=== PATIENT | male | born 1975 | race American Indian/Alaskan Native ===

== ENCOUNTER 2016-09-29 14:51 | Emergency (ER) | payer MEDICARE ==
--- NOTE | 2016-09-29 16:44 | Emergency Department Report ---
ED Seizure HPI - General Chief Complaint: Seizure Stated Complaint: SEIZURE/ALCHOL WITHDRAWL Time Seen by Provider: 09/29/16 16:12 Source: patient Mode of arrival: Stretcher Limitations: No Limitations - History of Present Illness Initial Comments: 41-year-old male history of hypertension presenting to the emergency department complaining of seizures. Patient states he was [facility] where witnesses noticed that he had LOC and generalized shaking, episode occurred less than 1 minute. Patient state he did feel lightheaded prior to episode. Patient only complaining of mild headache in the left temporal area. Patient states his last alcohol intake was 2 weeks prior. Patient states he does have history of withdrawal seizures. Currently patient denies: Fever/chills, neck pain, chest pain, nausea, vomiting, diarrhea. MD Complaint: seizure -: Sudden Description of Episode: loss of consciousness -: second(s) Witnessed:: Yes Trauma: Yes (hit his head) Seizure History: history of withdrawal se Place: other Associated Symptoms: denies other symptoms. denies: chest pain, confusion, loss of appetite, shortness of breath, syncope Treatments Prior to Arrival: none - Related Data Previous Rx's Medication Instructions Recorded Last Taken Type Hydroxyzine HCl 50 mg PO Q12H PRN #12 tablet 12/15/14 Unknown Rx Acetaminophen/Codeine [Tylenol 1 tab PO Q8H PRN #12 tablet 12/22/14 Unknown Rx /Codeine # 3 tab] Ibuprofen [Motrin 800 MG tab] 800 mg PO Q8HR PRN #30 tablet 09/29/16 Unknown Rx levETIRAcetam [Keppra TAB] 500 mg PO BID #40 tablet 09/29/16 Unknown Rx Allergies Allergy/AdvReac Type Severity Reaction Status Date / Time No Known Allergies Allergy Verified 12/22/14 10:09 ED Review of Systems ROS: Stated complaint: SEIZURE/ALCHOL WITHDRAWL Other details as noted in HPI Comment: All other systems reviewed and negative Constitutional: denies: chills, fever Eyes: denies: eye pain, eye discharge, vision change ENT: denies: ear pain, throat pain Respiratory: denies: cough, shortness of breath, wheezing Cardiovascular: denies: chest pain, palpitations Endocrine: no symptoms reported Gastrointestinal: denies: abdominal pain, nausea, diarrhea Genitourinary: denies: urgency, dysuria Musculoskeletal: denies: back pain, joint swelling, arthralgia Skin: denies: rash, lesions Neurological: as per HPI, headache, other (seizure). denies: numbness, paresthesias, confusion Psychiatric: denies: anxiety, depression Hematological/Lymphatic: denies: easy bleeding, easy bruising ED Past Medical Hx - Past Medical History Previous Medical History?: Yes Hx Hypertension: Yes Hx Psychiatric Treatment: Yes (PANIC ATTACKS/DEPRESSION/ ANXIETY/SCHIZOPHRENIA/ bipolar) - Surgical History Past Surgical History?: Yes Additional Surgical History: TONSILLECTOMY - Social History Smoking Status: Current Every Day Smoker Substance Use Type: Alcohol - Medications Home Medications: Home Medications Medication Instructions Recorded Confirmed Last Taken Type Hydroxyzine HCl 50 mg PO Q12H PRN #12 tablet 12/15/14 Unknown Rx Acetaminophen/Codeine [Tylenol 1 tab PO Q8H PRN #12 tablet 12/22/14 Unknown Rx /Codeine # 3 tab] Ibuprofen [Motrin 800 MG tab] 800 mg PO Q8HR PRN #30 tablet 09/29/16 Unknown Rx levETIRAcetam [Keppra TAB] 500 mg PO BID #40 tablet 09/29/16 Unknown Rx ED Physical Exam - General Limitations: No Limitations General appearance: alert, in no apparent distress - Head Head exam: Present: atraumatic, normocephalic - Eye Eye exam: Present: normal appearance - ENT ENT exam: Present: mucous membranes moist - Neck Neck exam: Present: normal inspection - Respiratory Respiratory exam: Present: normal lung sounds bilaterally. Absent: respiratory distress - Cardiovascular Cardiovascular Exam: Present: regular rate, normal rhythm. Absent: systolic murmur, diastolic murmur, rubs, gallop - GI/Abdominal GI/Abdominal exam: Present: soft, normal bowel sounds - Rectal Rectal exam: Present: deferred - Extremities Exam Extremities exam: Present: normal inspection - Back Exam Back exam: Present: normal inspection - Neurological Exam Neurological exam: Present: alert, oriented X3, normal gait (CIWA score: 0 ), reflexes normal. Absent: motor sensory deficit - Psychiatric Psychiatric exam: Present: normal affect, normal mood - Skin Skin exam: Present: warm, dry, intact, normal color. Absent: rash ED Course Vital Signs 09/29/16 09/29/16 09/29/16 15:29 17:21 17:22 Temperature 98.3 F Pulse Rate 88 86 86 Respiratory 18 Rate Blood Pressure 129/94 129/94 Blood Pressure 143/100 [Left] O2 Sat by Pulse 98 Oximetry 09/29/16 18:17 Temperature Pulse Rate Respiratory 18 Rate Blood Pressure Blood Pressure [Left] O2 Sat by Pulse 98 Oximetry - Reevaluation(s) Reevaluation #1: 09/29/16 18:28 Patient resting comfortably no complaints. ED Medical Decision Making - Lab Data Result diagrams: 09/29/16 17:03 09/29/16 17:03 - Radiology Data Radiology results: report reviewed, image reviewed Negative for acute findings. - Medical Decision Making 41-year-old male past medical history of hypertension presenting to emergency room secondary to seizure. Patient workup negative for acute findings. I have low suspicion that this is secondary to alcohol withdrawal as last drink was 2 weeks ago. He has no signs of DTs such as tachycardia, change in mental status , hypertension. CIWA score is zero. This may be secondary to new onset seizure , I will dc home with Keppra and neurology follow up. Pt agrees to plan, he has no complaints and is stable discharge home. Request understanding of return precautions. Critical care attestation.: If time is entered above; I have spent that time in minutes in the direct care of this critically ill patient, excluding procedure time. ED Disposition Clinical Impression: Seizure Disposition: DC-01 TO HOME OR SELFCARE Is pt being admited?: No Does the pt Need Aspirin: No Condition: Stable Instructions: Non-epileptic Seizures (ED) Prescriptions: Ibuprofen [Motrin 800 MG tab] 800 mg PO Q8HR PRN #30 tablet PRN Reason: Pain , Severe (7-10) levETIRAcetam [Keppra TAB] 500 mg PO BID #40 tablet Forms: Work/School Release Form(ED) Time of Disposition: 18:33
[2016-09-29] MEDS ORDERED: ATIVAN IV ONE (16:58)
[2016-09-29] MEDS ORDERED: CATAPRES PO ONE (16:59)
[2016-09-29] MEDS ORDERED: APRESOLINE IV ONE (16:59)
[2016-09-29 17:01] LABS: Urine Drugs of Abuse Note Disclamer
[2016-09-29 17:10] LABS: Bilirubin,Urine NEG (Negative); Blood,Urine NEG (Negative); Ketones,Urine NEG (Negative); Leukocyte Esterase,Urine NEG (Negative); Mucus,Urine FEW /HPF; Nitrite,Urine NEG (Negative); Protein,Urine <15 mg/dL mg/dL (Negative); Urobilinogen,Urine < 2.0 mg/dL (<2.0)
[2016-09-29 17:22] VITALS: BP 129/94
[2016-09-29 17:22] LABS: Basophils % (Auto) 0.4 % (0.0-1.8); Eosinophils % (Auto) 0.5 % (0.0-4.3); Hematocrit 47.2 % (35.5-45.6); Mean Corpuscular HGB Conc 34 % (32-34); Mean Corpuscular Hemoglobin 32 pg (28-32); Mean Corpuscular Volume 93 fl (84-94); Red Blood Count 5.06 M/mm3 (3.65-5.03); Red Cell Distribution Width 13.3 % (13.2-15.2); White Blood Count 9.3 K/mm3 (4.5-11.0)
--- NOTE | 2016-09-29 17:22 | Cat Scan Report ---
FINAL REPORT EXAM: CT HEAD/BRAIN WO CON HISTORY: seizure TECHNIQUE: Noncontrast serial axial images from skull base to vertex. PRIORS: None. FINDINGS: There is no mass effect or midline shift. There are no abnormal intra or extra-axial fluid collections. Cortical sulci and lateral ventricles are within normal limits for size and configuration. Basilar cisterns are patent. No acute intracranial hemorrhage is identified. Visualized paranasal sinuses and mastoid air cells are well aerated. No acute osseous abnormality is identified. IMPRESSION: 1. No abnormal mass or acute intracranial hemorrhage is identified.
[2016-09-29 17:32] LABS: INR 0.94 (0.87-1.13)
[2016-09-29 17:33] LABS: Partial Thromboplastin Time 28.3 Sec. (24.2-36.6)
[2016-09-29 17:34] LABS: Platelet Count 250 K/mm3 (140-440)
[2016-09-29 17:46] LABS: Alanine Aminotransferase 159 units/L (7-56); Albumin 4.7 g/dL (3.9-5); Albumin/Globulin Ratio 1.7 %; Alkaline Phosphatase 78 units/L (35-129); Anion Gap 19 mmol/L; BUN/Creatinine Ratio 8.75; Blood Urea Nitrogen 7 mg/dL (9-20); Carbon Dioxide 24 mmol/L (22-30); Chloride 97.3 mmol/L (98-107); Glucose 91 mg/dL (75-100); Potassium 4.4 mmol/L (3.6-5.0); Sodium 136 mmol/L (137-145); Total Protein 7.4 g/dL (6.3-8.2)
[2016-09-29] MEDS ORDERED: KEPPRA PO ONE (18:26)
== END 2016-09-29 18:54 | disposition home or self-care (01) ==
LOC: ED 14:51
DX: R56.9 Unspecified convulsions (principal); I10 Essential (primary) hypertension; F41.9 Anxiety disorder, unspecified; F31.9 Bipolar disorder, unspecified; F20.9 Schizophrenia, unspecified; F17.200 Nicotine dependence, unspecified, uncomplicated
CPT/HCPCS: 36415; 70450; 80053; 80307; 81001; 84484; 85025; 85610; 85730; 93005; 93010; 96374; 99284; G0480; J2060; 80320

== ENCOUNTER 2016-10-03 14:19 | Emergency (ER) | payer MEDICARE | END 2016-10-03 14:20 | disposition left against medical advice (07) | LOC: ED 14:19 | DX: R07.9 Chest pain, unspecified (principal); Z53.21 Procedure and treatment not carried out due to patient leaving prior to being seen by health care provider ==

== ENCOUNTER 2016-10-25 01:39 | Emergency (ER) | payer MEDICARE ==
[2016-10-25] MEDS ORDERED: DELTASONE PO ONE (03:04)
[2016-10-25] MEDS ORDERED: BENADRYL PO ONE ×2 (03:04→03:30)
[2016-10-25] MEDS ORDERED: PEPCID PO ONE (03:05)
[2016-10-25 03:21] LABS: Urine Drugs of Abuse Note Disclamer
[2016-10-25] MEDS ORDERED: PEPCID ONE (03:30)
[2016-10-25] MEDS ORDERED: DELTASONE ONE (03:30)
[2016-10-25 03:35] LABS: Bilirubin,Urine NEG (Negative); Blood,Urine NEG (Negative); Ketones,Urine NEG (Negative); Leukocyte Esterase,Urine NEG (Negative); Mucus,Urine FEW /HPF; Nitrite,Urine NEG (Negative); Protein,Urine <15 mg/dL mg/dL (Negative); RBC,Urine < 1.0 /HPF (0.0-6.0); Urobilinogen,Urine < 2.0 mg/dL (<2.0)
[2016-10-25 03:39] LABS: Basophils % (Auto) 0.7 % (0.0-1.8); Eosinophils % (Auto) 6.7 % (0.0-4.3); Hematocrit 44.5 % (35.5-45.6); Hemoglobin 15.3 gm/dl (11.8-15.2); Mean Corpuscular HGB Conc 34 % (32-34); Mean Corpuscular Hemoglobin 31 pg (28-32); Mean Corpuscular Volume 90 fl (84-94); Platelet Count 297 K/mm3 (140-440); Red Blood Count 4.96 M/mm3 (3.65-5.03); White Blood Count 5.5 K/mm3 (4.5-11.0)
[2016-10-25 03:57] LABS: Anion Gap 22 mmol/L; BUN/Creatinine Ratio 8.88; Blood Urea Nitrogen 8 mg/dL (9-20); Calcium 9.1 mg/dL (8.4-10.2); Carbon Dioxide 24 mmol/L (22-30); Chloride 97.3 mmol/L (98-107); Glucose 74 mg/dL (75-100); Potassium 3.9 mmol/L (3.6-5.0); Sodium 139 mmol/L (137-145)
--- NOTE | 2016-10-25 10:28 | Emergency Department Report ---
ED Psych HPI - General Chief Complaint: Medical Clearance Stated Complaint: HIGH BP Time Seen by Provider: 10/25/16 10:05 Source: patient Mode of arrival: Ambulatory - History of Present Illness Initial Comments: PATIENT STATED THAT HE IS HERE TO GET MEDICAL CLEARANCE HE WAS ASKED BY [facility] FOR ALCOHOL DETOX. PATIENT STATED THAT HE IS BEEN DRINKING FOR THE LAST 30 YEARS. DENIED ANY SUICIDAL OR HOMOCIDAL IDEATION. -: Gradual - Related Data Previous Rx's Medication Instructions Recorded Last Taken Type Hydroxyzine HCl 50 mg PO Q12H PRN #12 tablet 12/15/14 Unknown Rx Acetaminophen/Codeine [Tylenol 1 tab PO Q8H PRN #12 tablet 12/22/14 Unknown Rx /Codeine # 3 tab] Ibuprofen [Motrin 800 MG tab] 800 mg PO Q8HR PRN #30 tablet 09/29/16 Unknown Rx levETIRAcetam [Keppra TAB] 500 mg PO BID #40 tablet 09/29/16 Unknown Rx Allergies Allergy/AdvReac Type Severity Reaction Status Date / Time No Known Allergies Allergy Verified 12/22/14 10:09 ED Review of Systems ROS: Stated complaint: HIGH BP Other details as noted in HPI Comment: All other systems reviewed and negative Constitutional: denies: chills, fever Cardiovascular: denies: chest pain, palpitations Gastrointestinal: denies: abdominal pain Genitourinary: denies: dysuria, frequency Neurological: denies: headache, weakness, numbness, paresthesias, confusion Psychiatric: denies: anxiety, depression, auditory hallucinations, visual hallucinations, homicidal thoughts, suicidal thoughts ED Past Medical Hx - Past Medical History Previous Medical History?: Yes Hx Hypertension: Yes Hx Psychiatric Treatment: Yes (PANIC ATTACKS/DEPRESSION/ ANXIETY/SCHIZOPHRENIA/ bipolar) - Surgical History Past Surgical History?: Yes Additional Surgical History: TONSILLECTOMY - Social History Smoking Status: Current Every Day Smoker Substance Use Type: Alcohol, Marijuana - Medications Home Medications: Home Medications Medication Instructions Recorded Confirmed Last Taken Type Hydroxyzine HCl 50 mg PO Q12H PRN #12 tablet 12/15/14 Unknown Rx Acetaminophen/Codeine [Tylenol 1 tab PO Q8H PRN #12 tablet 12/22/14 Unknown Rx /Codeine # 3 tab] Ibuprofen [Motrin 800 MG tab] 800 mg PO Q8HR PRN #30 tablet 09/29/16 Unknown Rx levETIRAcetam [Keppra TAB] 500 mg PO BID #40 tablet 09/29/16 Unknown Rx ED Physical Exam - General Limitations: No Limitations General appearance: alert, in no apparent distress - Head Head exam: Present: atraumatic, normocephalic, normal inspection - Eye Eye exam: Present: normal appearance Pupils: Present: normal accommodation - ENT ENT exam: Present: normal exam - Neck Neck exam: Present: normal inspection, full ROM. Absent: tenderness, meningismus, lymphadenopathy - Respiratory Respiratory exam: Present: normal lung sounds bilaterally - Cardiovascular Cardiovascular Exam: Present: regular rate, normal heart sounds - GI/Abdominal GI/Abdominal exam: Present: soft. Absent: distended, tenderness, guarding, rebound, mass, pulsatile mass, hernia - Extremities Exam Extremities exam: Present: normal inspection ED Course Vital Signs 10/25/16 10/25/16 04:18 04:31 Temperature 98.5 F Pulse Rate 72 Respiratory 20 Rate Blood Pressure 136/103 148/108 [Right] O2 Sat by Pulse 97 Oximetry ED Medical Decision Making - Lab Data Result diagrams: 10/25/16 03:21 10/25/16 03:21 Critical care attestation.: If time is entered above; I have spent that time in minutes in the direct care of this critically ill patient, excluding procedure time. ED Disposition Clinical Impression: Substance abuse Disposition: DC/TX-65 PSY HOSP/PSY UNIT Is pt being admited?: No Does the pt Need Aspirin: No Condition: Stable Additional Instructions: PATIENT IS MEDICALLY CLEAR TO FOLLOW UP WITH [facility] FOR DETOX Referrals: ARIE MALIK MD [Primary Care Provider] - 3-5 Days
[2016-10-25 10:35] VITALS: BP 138/76
== END 2016-10-25 10:36 ==
LOC: ED 01:39
DX: F19.10 Other psychoactive substance abuse, uncomplicated (principal); I10 Essential (primary) hypertension; F31.9 Bipolar disorder, unspecified; F20.9 Schizophrenia, unspecified; F41.9 Anxiety disorder, unspecified; F17.200 Nicotine dependence, unspecified, uncomplicated; F12.90 Cannabis use, unspecified, uncomplicated
CPT/HCPCS: 36415; 80048; 80307; 81001; 85025; 99283; G0480; 80320; J7512

== ENCOUNTER 2016-11-09 14:00 | Emergency (ER) | payer MEDICARE ==
--- NOTE | 2016-11-09 15:45 | Emergency Department Report ---
Chief Complaint: Psych Stated Complaint: MH EVAL Time Seen by Provider: 11/09/16 15:42 - HPI History of Present Illness: PT states he started drinking again yesterday. PT states he has been drinking today. PT requesting detox. pt denies si/hi - ROS Review of Systems: - si - hi - Exam Physical Exam: pt alert and appropriate in triage gcs 15 MSE screening note: Focused history and physical exam performed. Due to findings the following was ordered: labs, mhe ED Disposition for MSE Condition: Stable
[2016-11-09 16:20] LABS: Basophils % (Auto) 0.9 % (0.0-1.8); Eosinophils % (Auto) 3.8 % (0.0-4.3); Hematocrit 46.9 % (35.5-45.6); Hemoglobin 15.6 gm/dl (11.8-15.2); Mean Corpuscular HGB Conc 33 % (32-34); Mean Corpuscular Hemoglobin 30 pg (28-32); Mean Corpuscular Volume 89 fl (84-94); Platelet Count 434 K/mm3 (140-440); Red Blood Count 5.24 M/mm3 (3.65-5.03); Red Cell Distribution Width 12.8 % (13.2-15.2); White Blood Count 7.9 K/mm3 (4.5-11.0)
[2016-11-09 16:37] LABS: Alanine Aminotransferase 19 units/L (7-56); Albumin 4.7 g/dL (3.9-5); Albumin/Globulin Ratio 1.4 %; Alkaline Phosphatase 119 units/L (35-129); Anion Gap 24 mmol/L; Blood Urea Nitrogen 9 mg/dL (9-20); Calcium 9.8 mg/dL (8.4-10.2); Carbon Dioxide 23 mmol/L (22-30); Chloride 96.7 mmol/L (98-107); Glucose 121 mg/dL (75-100); Sodium 140 mmol/L (137-145); Total Protein 8.1 g/dL (6.3-8.2)
--- NOTE | 2016-11-09 20:27 | Emergency Department Report ---
ED Psych HPI - General Chief Complaint: Psych Stated Complaint: MAXWELL PATIÑO Time Seen by Provider: 11/09/16 15:42 Source: patient Mode of arrival: Ambulatory - History of Present Illness Initial Comments: She has a 41-year-old male past medical history of anxiety who presents with "nervous breakdown." Patient denies any suicidal or homicidal ideation he states that that there have been things going on in his life. He states that he started drinking. He wants to go to [place] for detox. Patient currently is in no acute distress. He states that his anxiety is bothering him. The symptoms worse anxiety are moderate breast and medication makes his symptoms better arguing and being with people he doesn't know makes it worse. He denies any chest pain, weakness or headache. - Related Data Previous Rx's Medication Instructions Recorded Last Taken Type Hydroxyzine HCl 50 mg PO Q12H PRN #12 tablet 12/15/14 Unknown Rx Acetaminophen/Codeine [Tylenol 1 tab PO Q8H PRN #12 tablet 12/22/14 Unknown Rx /Codeine # 3 tab] Ibuprofen [Motrin 800 MG tab] 800 mg PO Q8HR PRN #30 tablet 09/29/16 Unknown Rx levETIRAcetam [Keppra TAB] 500 mg PO BID #40 tablet 09/29/16 Unknown Rx Allergies Allergy/AdvReac Type Severity Reaction Status Date / Time No Known Allergies Allergy Verified 12/22/14 10:09 ED Review of Systems ROS: Stated complaint: MAXWELL PATIÑO Other details as noted in HPI Constitutional: denies: chills, fever Eyes: denies: eye pain, eye discharge, vision change ENT: denies: ear pain, throat pain Respiratory: denies: cough, shortness of breath, wheezing Cardiovascular: denies: chest pain, palpitations Endocrine: no symptoms reported Gastrointestinal: denies: abdominal pain, nausea, diarrhea Genitourinary: denies: urgency, dysuria Musculoskeletal: denies: back pain, joint swelling, arthralgia Skin: as per HPI Neurological: denies: headache, weakness, paresthesias Psychiatric: anxiety Hematological/Lymphatic: denies: easy bleeding, easy bruising ED Past Medical Hx - Past Medical History Previous Medical History?: Yes Hx Hypertension: Yes Hx Psychiatric Treatment: Yes (PANIC ATTACKS/DEPRESSION/ ANXIETY/SCHIZOPHRENIA/ bipolar) - Surgical History Past Surgical History?: Yes Additional Surgical History: TONSILLECTOMY - Social History Smoking Status: Current Every Day Smoker Substance Use Type: Alcohol - Medications Home Medications: Home Medications Medication Instructions Recorded Confirmed Last Taken Type Hydroxyzine HCl 50 mg PO Q12H PRN #12 tablet 12/15/14 Unknown Rx Acetaminophen/Codeine [Tylenol 1 tab PO Q8H PRN #12 tablet 12/22/14 Unknown Rx /Codeine # 3 tab] Ibuprofen [Motrin 800 MG tab] 800 mg PO Q8HR PRN #30 tablet 09/29/16 Unknown Rx levETIRAcetam [Keppra TAB] 500 mg PO BID #40 tablet 09/29/16 Unknown Rx ED Physical Exam - General Limitations: No Limitations General appearance: alert, in no apparent distress - Head Head exam: Present: atraumatic, normocephalic - Eye Eye exam: Present: normal appearance - ENT ENT exam: Present: mucous membranes moist - Neck Neck exam: Present: normal inspection - Respiratory Respiratory exam: Present: normal lung sounds bilaterally. Absent: respiratory distress - Cardiovascular Cardiovascular Exam: Present: regular rate, normal rhythm. Absent: systolic murmur, diastolic murmur, rubs, gallop - GI/Abdominal GI/Abdominal exam: Present: soft, normal bowel sounds - Rectal Rectal exam: Present: deferred - Extremities Exam Extremities exam: Present: normal inspection - Back Exam Back exam: Present: normal inspection - Neurological Exam Neurological exam: Present: alert, oriented X3 - Psychiatric Psychiatric exam: Present: normal affect, normal mood - Skin Skin exam: Present: warm, dry, intact, normal color. Absent: rash ED Course Vital Signs 11/09/16 11/09/16 15:42 23:41 Temperature 99.6 F 98.7 F Pulse Rate 127 H 105 H Respiratory 16 16 Rate Blood Pressure 143/102 Blood Pressure 127/97 [Right] O2 Sat by Pulse 98 98 Oximetry - Reevaluation(s) Reevaluation #1: 11/09/16 23:14 Stress with the patient's mental health worker she states that he is cleared to go and she will talk to him about outpatient alcohol rehabilitation follow-up. Patient is alert and oriented and has no suicidal ideation. ED Medical Decision Making - Lab Data Result diagrams: 11/09/16 15:48 11/09/16 15:57 Laboratory Results - last 24 hr 11/09/16 11/09/1611/09/17 15:48 15:48 15:56 WBC 7.9 RBC 5.24 H Hgb 15.6 H Hct 46.9 H MCV 89 MCH 30 MCHC 33 RDW 12.8 L Plt Count 434 Lymph % (Auto) 22.4 [place] % (Auto) 7.5 H Eos % (Auto) 3.8 Baso % (Auto) 0.9 Lymph # 1.8 [place] # 0.6 Eos # 0.3 Baso # 0.1 Seg Neutrophils % 65.4 Seg Neutrophils # 5.2 Sodium Potassium Chloride Carbon Dioxide Anion Gap BUN Creatinine Estimated GFR BUN/Creatinine Ratio Glucose Calcium Total Bilirubin AST ALT Alkaline Phosphatase Total Protein Albumin Albumin/Globulin Ratio Salicylates Acetaminophen < 15.0 Plasma/Serum Alcohol 0.16 H 11/09/16 11/09/16 15:57 15:57 WBC RBC Hgb Hct MCV MCH MCHC RDW Plt Count Lymph % (Auto) [place] % (Auto) Eos % (Auto) Baso % (Auto) Lymph # [place] # Eos # Baso # Seg Neutrophils % Seg Neutrophils # Sodium 140 Potassium 4.0 Chloride 96.7 L Carbon Dioxide 23 Anion Gap 24 BUN 9 Creatinine 0.9 Estimated GFR > 60 BUN/Creatinine Ratio 10.00 Glucose 121 H Calcium 9.8 Total Bilirubin 0.70 AST 24 ALT 19 Alkaline Phosphatase 119 Total Protein 8.1 Albumin 4.7 Albumin/Globulin Ratio 1.4 Salicylates < 0.3 L Acetaminophen Plasma/Serum Alcohol - Medical Decision Making Diagnosis: Anxiety Differential medical diagnosis: Alcohol withdrawal, substance induced mood disorder We'll get CBC, CMP, urinalysis, blood alcohol Due to patient's acute history will have patient a dollar by mental health worker. Patient's been seen by mental health worker and has been cleared to go to outpatient rehabilitation. He can be discharged from this hospital. He has also been medically cleared. Critical care attestation.: If time is entered above; I have spent that time in minutes in the direct care of this critically ill patient, excluding procedure time. ED Disposition Clinical Impression: Anxiety Disposition: DC-01 TO HOME OR SELFCARE Is pt being admited?: No Does the pt Need Aspirin: No Condition: Stable Instructions: Anxiety (ED) Referrals: PRIMARY CARE, [Primary Care Provider] - 3-5 Days Time of Disposition: 01:09
[2016-11-10 08:09] VITALS: BP 141/97
== END 2016-11-10 08:05 | disposition home or self-care (01) ==
LOC: EEVIPCON 14:00 → ED 14:00
DX: F41.9 Anxiety disorder, unspecified (principal); I10 Essential (primary) hypertension; F31.9 Bipolar disorder, unspecified; F20.9 Schizophrenia, unspecified; F17.200 Nicotine dependence, unspecified, uncomplicated
CPT/HCPCS: 36415; 80053; 85025; 99284; G0480; 80320

== ENCOUNTER 2016-11-21 21:39 | Emergency (ER) | payer MEDICARE ==
[2016-11-21 23:00] LABS: Basophils % (Auto) 0.5 % (0.0-1.8); Hematocrit 45.5 % (35.5-45.6); Hemoglobin 15.1 gm/dl (11.8-15.2); Mean Corpuscular HGB Conc 33 % (32-34); Mean Corpuscular Hemoglobin 30 pg (28-32); Mean Corpuscular Volume 89 fl (84-94); Platelet Count 394 K/mm3 (140-440); Red Blood Count 5.11 M/mm3 (3.65-5.03); Red Cell Distribution Width 13.2 % (13.2-15.2); White Blood Count 9.7 K/mm3 (4.5-11.0)
[2016-11-21 23:03] LABS: Alanine Aminotransferase 10 units/L (7-56); Albumin 4.6 g/dL (3.9-5); Albumin/Globulin Ratio 1.3 %; Alkaline Phosphatase 95 units/L (35-129); Anion Gap 22 mmol/L; BUN/Creatinine Ratio 9.09; Blood Urea Nitrogen 10 mg/dL (9-20); Calcium 9.6 mg/dL (8.4-10.2); Carbon Dioxide 21 mmol/L (22-30); Chloride 100.9 mmol/L (98-107); Glucose 107 mg/dL (75-100); Potassium 4.1 mmol/L (3.6-5.0); Sodium 140 mmol/L (137-145); Total Protein 8.2 g/dL (6.3-8.2)
[2016-11-21 23:04] LABS: Urine Drugs of Abuse Note Disclamer
[2016-11-21 23:30] LABS: Bilirubin,Urine NEG (Negative); Blood,Urine NEG (Negative); Ketones,Urine NEG (Negative); Leukocyte Esterase,Urine NEG (Negative); Mucus,Urine FEW /HPF; Nitrite,Urine NEG (Negative); Protein,Urine <15 mg/dL mg/dL (Negative); Urobilinogen,Urine < 2.0 mg/dL (<2.0); WBC,Urine < 1.0 /HPF (0.0-6.0)
--- NOTE | 2016-11-22 04:21 | Emergency Department Report ---
ED Medical Clearance HPI - General Chief complaint: Medical Clearance Stated complaint: DETOX Time Seen by Provider: 11/22/16 04:05 Source: patient Mode of arrival: Ambulatory - History of Present Illness Initial comments: detox from alcohol Reason for Medical Clearance: intoxication Traumatic Symptoms: denies traumatic injury Associated Symptoms: denies: shortness of breath, palpitations Home medications: Previous Rx's Medication Instructions Recorded Last Taken Type Hydroxyzine HCl 50 mg PO Q12H PRN #12 tablet 12/15/14 Unknown Rx Acetaminophen/Codeine [Tylenol 1 tab PO Q8H PRN #12 tablet 12/22/14 Unknown Rx /Codeine # 3 tab] Ibuprofen [Motrin 800 MG tab] 800 mg PO Q8HR PRN #30 tablet 09/29/16 Unknown Rx levETIRAcetam [Keppra TAB] 500 mg PO BID #40 tablet 09/29/16 Unknown Rx Allergies/Adverse reactions: Allergies Allergy/AdvReac Type Severity Reaction Status Date / Time No Known Allergies Allergy Verified 12/22/14 10:09 ED Review of Systems ROS: Stated complaint: DETOX Other details as noted in HPI Comment: All other systems reviewed and negative Constitutional: no symptoms reported. denies: chills, fever Respiratory: denies: cough, orthopnea, shortness of breath, SOB with exertion Cardiovascular: denies: chest pain, palpitations, dyspnea on exertion Endocrine: denies: intolerance to cold, intolerance to heat Gastrointestinal: denies: abdominal pain, nausea, vomiting Neurological: denies: headache, weakness ED Past Medical Hx - Past Medical History Hx Hypertension: Yes Hx Psychiatric Treatment: Yes (PANIC ATTACKS/DEPRESSION/ ANXIETY/SCHIZOPHRENIA/ bipolar) - Surgical History Additional Surgical History: TONSILLECTOMY - Social History Smoking Status: Heavy Tobacco Smoker Substance Use Type: Alcohol - Medications Home Medications: Home Medications Medication Instructions Recorded Confirmed Last Taken Type Hydroxyzine HCl 50 mg PO Q12H PRN #12 tablet 12/15/14 Unknown Rx Acetaminophen/Codeine [Tylenol 1 tab PO Q8H PRN #12 tablet 12/22/14 Unknown Rx /Codeine # 3 tab] Ibuprofen [Motrin 800 MG tab] 800 mg PO Q8HR PRN #30 tablet 09/29/16 Unknown Rx levETIRAcetam [Keppra TAB] 500 mg PO BID #40 tablet 09/29/16 Unknown Rx ED Physical Exam - General Limitations: No Limitations General appearance: alert - Head Head exam: Present: atraumatic - Eye Eye exam: Present: normal appearance - ENT ENT exam: Present: normal exam - Neck Neck exam: Present: normal inspection. Absent: tenderness, meningismus, full ROM - Respiratory Respiratory exam: Present: normal lung sounds bilaterally. Absent: respiratory distress, wheezes, rales, rhonchi, stridor - Cardiovascular Cardiovascular Exam: Present: regular rate, normal rhythm, normal heart sounds - GI/Abdominal GI/Abdominal exam: Present: soft. Absent: distended, tenderness, guarding - Extremities Exam Extremities exam: Present: normal inspection - Back Exam Back exam: Present: normal inspection. Absent: tenderness, CVA tenderness (R), CVA tenderness (L), muscle spasm - Neurological Exam Neurological exam: Present: alert, oriented X3, CN II-XII intact - Skin Skin exam: Present: warm, intact, normal color ED Course Vital Signs 11/21/16 11/22/16 22:17 04:50 Temperature 99.5 F Pulse Rate 79 97 H Respiratory 18 18 Rate Blood Pressure 123/82 Blood Pressure 129/77 [Left] O2 Sat by Pulse 98 98 Oximetry ED Medical Decision Making - Lab Data Result diagrams: 11/21/16 22:27 11/21/16 22:27 ED Disposition Clinical Impression: Alcohol abuse Disposition: DC/TX-65 PSY HOSP/PSY UNIT Is pt being admited?: No Condition: Stable Referrals: PRIMARY CARE [Primary Care Provider] - 3-5 Days
[2016-11-22 08:45] VITALS: BP 142/78
== END 2016-11-22 08:46 ==
LOC: EEVIPCON 21:39 → ED 21:39
DX: F10.129 Alcohol abuse with intoxication, unspecified (principal); I10 Essential (primary) hypertension; F17.200 Nicotine dependence, unspecified, uncomplicated; F31.9 Bipolar disorder, unspecified; F20.9 Schizophrenia, unspecified
CPT/HCPCS: 36415; 80053; 80307; 81001; 85025; 99285; G0480; 80320

== ENCOUNTER 2016-12-08 23:26 | Emergency (ER) | payer MEDICARE ==
[2016-12-09 02:18] LABS: Hematocrit 42.8 % (35.5-45.6); Hemoglobin 14.4 gm/dl (11.8-15.2); Mean Corpuscular HGB Conc 34 % (32-34); Mean Corpuscular Hemoglobin 29 pg (28-32); Mean Corpuscular Volume 87 fl (84-94); Platelet Count 358 K/mm3 (140-440); Red Blood Count 4.94 M/mm3 (3.65-5.03); Red Cell Distribution Width 13.1 % (13.2-15.2); White Blood Count 14.9 K/mm3 (4.5-11.0)
[2016-12-09 02:21] LABS: Anion Gap 21 mmol/L; BUN/Creatinine Ratio 11.11; Blood Urea Nitrogen 10 mg/dL (9-20); Calcium 9.5 mg/dL (8.4-10.2); Carbon Dioxide 23 mmol/L (22-30); Chloride 97.6 mmol/L (98-107); Glucose 84 mg/dL (75-100); Potassium 3.9 mmol/L (3.6-5.0); Sodium 138 mmol/L (137-145)
[2016-12-09 02:53] LABS: Basophils % (Manual) 0 % (0.0-1.8); Blastocytes % (Manual) 0 %; Diff Status Complete; Platelet Estimate Consistent w Auto; RBC Morphology Normal
[2016-12-09 02:55] LABS: Urine Drugs of Abuse Note Disclamer
[2016-12-09 03:06] LABS: Bilirubin,Urine NEG (Negative); Blood,Urine NEG (Negative); Ketones,Urine NEG (Negative); Leukocyte Esterase,Urine NEG (Negative); Mucus,Urine FEW /HPF; Nitrite,Urine NEG (Negative); Protein,Urine <15 mg/dL mg/dL (Negative); Urobilinogen,Urine < 2.0 mg/dL (<2.0)
[2016-12-09 03:13] LABS: WBC,Urine < 1.0 /HPF (0.0-6.0)
[2016-12-09 18:04] VITALS: BP 133/93
--- NOTE | 2016-12-09 20:51 | Emergency Department Report ---
ED Psych HPI - General Chief Complaint: Psych Stated Complaint: MH EVAL Time Seen by Provider: 12/09/16 18:09 Source: patient Mode of arrival: Ambulatory Limitations: No Limitations - History of Present Illness Initial Comments: 41-year-old male with a past medical history hypertension, schizophrenia, panic attacks, and bipolar disorder presents to the hospital requesting something for anxiety. Patient states he had a bad panic attack last night. Symptoms have resolved spontaneously sleeping and waiting to be evaluated in ED. Similar symptoms of panic attacks in the past.He ran out of his Xanax one week ago. Patient was taken Xanax 0.5 mg 3 times a day. He was recently discharged from inpatient anchor is currently in the [facility] outpatient program. - Related Data Previous Rx's Medication Instructions Recorded Last Taken Type Hydroxyzine HCl 50 mg PO Q12H PRN #12 tablet 12/15/14 Unknown Rx Acetaminophen/Codeine [Tylenol 1 tab PO Q8H PRN #12 tablet 12/22/14 Unknown Rx /Codeine # 3 tab] Ibuprofen [Motrin 800 MG tab] 800 mg PO Q8HR PRN #30 tablet 09/29/16 Unknown Rx levETIRAcetam [Keppra TAB] 500 mg PO BID #40 tablet 09/29/16 Unknown Rx hydrOXYzine PAMOATE [Vistaril] 50 mg PO Q6HR PRN #20 capsule 12/09/16 Unknown Rx Allergies Allergy/AdvReac Type Severity Reaction Status Date / Time No Known Allergies Allergy Verified 12/22/14 10:09 ED Review of Systems ROS: Stated complaint: MH EVAL Other details as noted in HPI Comment: All other systems reviewed and negative Other: Constitutional: No fevers chills Eyes: No eye pain visual changes or discharge ENT: No ear pain or throat pain Neck: Denies pain Respiratory: Shortness of breath with anxiety Cardiovascular: Chest pain with anxiety GI: Denies abdominal pain, nausea, vomiting, diarrhea : Denies dysuria Musculoskeletal: Denies back pain Skin: Denies rash, lesions, erythema Neurologic: Denies headache, numbness, weakness Psychiatric: Denies suicidal ideation, hallucinations ED Past Medical Hx - Past Medical History Previous Medical History?: Yes Hx Hypertension: Yes Hx Psychiatric Treatment: Yes (PANIC ATTACKS/DEPRESSION/ ANXIETY/SCHIZOPHRENIA/ bipolar) - Surgical History Past Surgical History?: Yes Additional Surgical History: TONSILLECTOMY - Social History Smoking Status: Current Every Day Smoker Substance Use Type: None - Medications Home Medications: Home Medications Medication Instructions Recorded Confirmed Last Taken Type Hydroxyzine HCl 50 mg PO Q12H PRN #12 tablet 12/15/14 Unknown Rx Acetaminophen/Codeine [Tylenol 1 tab PO Q8H PRN #12 tablet 12/22/14 Unknown Rx /Codeine # 3 tab] Ibuprofen [Motrin 800 MG tab] 800 mg PO Q8HR PRN #30 tablet 09/29/16 Unknown Rx levETIRAcetam [Keppra TAB] 500 mg PO BID #40 tablet 09/29/16 Unknown Rx hydrOXYzine PAMOATE [Vistaril] 50 mg PO Q6HR PRN #20 capsule 12/09/16 Unknown Rx ED Physical Exam - General Limitations: No Limitations - Other Other exam information: General: No limitations, patient is alert in no acute distress Head exam: Atraumatic, normocephalic Eyes exam: Normal appearance ENT: Moist mucous membrane, normal oropharynx Neck exam: Normal inspection, full range of motion Respiratory exam: Clear to auscultation bilateral, no wheezes, rales, crackles Cardiovascular: Normal rate and rhythm, normal heart sounds Abdomen: Soft, nondistended, and nontender, with normal bowel sounds, no rebound, or guarding Extremity: Full range of motion normal inspection no deformity, numbness or edema Back: Normal Inspection, full range of motion, no tenderness Neurologic: Alert, oriented x3, cranial nerves intact, no motor or sensory deficit Psychiatric: normal affect, normal mood Skin: Warm, dry, intact ED Course Vital Signs 12/09/16 12/09/16 12/09/16 01:14 18:03 18:05 Temperature 98.8 F 98.5 F Pulse Rate 102 H 87 Respiratory 18 18 18 Rate Blood Pressure 135/101 Blood Pressure 133/93 [Right] O2 Sat by Pulse 100 98 97 Oximetry - Consultations Consultation #1: 12/09/16 20:51 Case discussed with mental health pharmacy account director. Patient appeared was discharged from [facility] to weeks ago was provided a 30 day supply of Xanax. Drug-seeking behavior is suspected and patient likely suffered his medications on a street. ED Medical Decision Making - Lab Data Result diagrams: 12/09/16 01:44 12/09/16 01:44 Lab Results 09/09/1912/09/16 12/09/16 Range/Units 01:20 01:20 01:44 WBC (4.5-11.0) K/mm3 RBC (3.65-5.03) M/mm3 Hgb (11.8-15.2) gm/dl Hct (35.5-45.6) % MCV (84-94) fl MCH (28-32) pg MCHC (32-34) % RDW (13.2-15.2) % Plt Count (140-440) K/mm3 Add Manual Diff Total Counted Seg Neuts % (Manual) (40.0-70.0) % Band Neutrophils % % Lymphocytes % (Manual) (13.4-35.0) % Reactive Lymphs % (Man) % Monocytes % (Manual) (0.0-7.3) % Eosinophils % (Manual) (0.0-4.3) % Basophils % (Manual) (0.0-1.8) % Metamyelocytes % % Myelocytes % % Promyelocytes % % Blast Cells % % Nucleated RBC % Seg Neutrophils # Man (1.8-7.7) K/mm3 Band Neutrophils # K/mm3 Lymphocytes # (Manual) (1.2-5.4) K/mm3 Abs React Lymphs (Man) K/mm3 Monocytes # (Manual) (0.0-0.8) K/mm3 Eosinophils # (Manual) (0.0-0.4) K/mm3 Basophils # (Manual) (0.0-0.1) K/mm3 Metamyelocytes # K/mm3 Myelocytes # K/mm3 Promyelocytes # K/mm3 Blast Cells # K/mm3 WBC Morphology Hypersegmented Neuts Hyposegmented Neuts Hypogranular Neuts Smudge Cells Toxic Granulation Toxic Vacuolation Dohle Bodies Pelger-Huet Anomaly Hailey Rods Platelet Estimate Clumped Platelets Plt Clumps, EDTA Large Platelets Giant Platelets Platelet Satelliting Plt Morphology Comment RBC Morphology Dimorphic RBCs Polychromasia Hypochromasia Poikilocytosis Anisocytosis Microcytosis Macrocytosis Spherocytes Pappenheimer Bodies Sickle Cells Target Cells Tear Drop Cells Ovalocytes Helmet Cells Gonzalez-[place] Bodies [place] Rings Candy Cells Bite Cells Crenated Cell Elliptocytes Acanthocytes (Spur) Rouleaux Hemoglobin C Crystals Schistocytes Malaria parasites Juan C Bodies Hem Pathologist Commnt Sodium 138 (137-145) mmol/L Potassium 3.9 (3.6-5.0) mmol/L Chloride 97.6 L (98-107) mmol/L Carbon Dioxide 23 (22-30) mmol/L Anion Gap 21 mmol/L BUN 10 (9-20) mg/dL Creatinine 0.9 (0.8-1.5) mg/dL Estimated GFR > 60 ml/min BUN/Creatinine Ratio 11.11 % Glucose 84 (75-100) mg/dL Calcium 9.5 (8.4-10.2) mg/dL Urine Color Yellow (Yellow) Urine Turbidity Clear (Clear) Urine pH 5.0 (5.0-7.0) Ur Specific [place] 1.012 (1.003-1.030) Urine Protein <15 mg/dl (Negative) mg/dL Urine Glucose (UA) Neg (Negative) mg/dL Urine Ketones Neg (Negative) mg/dL Urine Blood Neg (Negative) Urine Nitrite Neg (Negative) Urine Bilirubin Neg (Negative) Urine Urobilinogen < 2.0 (<2.0) mg/dL Ur Leukocyte Esterase Neg (Negative) Urine WBC (Auto) < 1.0 (0.0-6.0) /HPF Urine RBC (Auto) 1.0 (0.0-6.0) /HPF Urine Mucus Few /HPF Urine Opiates Screen Presumptive negative Urine Methadone Screen Presumptive negative Ur Barbiturates Screen Presumptive negative Ur Phencyclidine Scrn Presumptive negative Ur Amphetamines Screen Presumptive negative U Benzodiazepines Scrn Presumptive negative Urine Cocaine Screen Presumptive negative U Marijuana (THC) Screen Presumptive negative Drugs of Abuse Note Disclamer Plasma/Serum Alcohol (0-0.07) gm% 12/09/16 12/09/16 Range/Units 01:44 01:44 WBC 14.9 H (4.5-11.0) K/mm3 RBC 4.94 (3.65-5.03) M/mm3 Hgb 14.4 (11.8-15.2) gm/dl Hct 42.8 (35.5-45.6) % MCV 87 (84-94) fl MCH 29 (28-32) pg MCHC 34 (32-34) % RDW 13.1 L (13.2-15.2) % Plt Count 358 (140-440) K/mm3 Add Manual Diff Complete Total Counted 100 Seg Neuts % (Manual) 64.0 (40.0-70.0) % Band Neutrophils % 5.0 % Lymphocytes % (Manual) 17.0 (13.4-35.0) % Reactive Lymphs % (Man) 0 % Monocytes % (Manual) 9.0 H (0.0-7.3) % Eosinophils % (Manual) 5.0 H (0.0-4.3) % Basophils % (Manual) 0 (0.0-1.8) % Metamyelocytes % 0 % Myelocytes % 0 % Promyelocytes % 0 % Blast Cells % 0 % Nucleated RBC % Not Reportable Seg Neutrophils # Man 9.5 H (1.8-7.7) K/mm3 Band Neutrophils # 0.7 K/mm3 Lymphocytes # (Manual) 2.5 (1.2-5.4) K/mm3 Abs React Lymphs (Man) 0.0 K/mm3 Monocytes # (Manual) 1.3 H (0.0-0.8) K/mm3 Eosinophils # (Manual) 0.7 H (0.0-0.4) K/mm3 Basophils # (Manual) 0.0 (0.0-0.1) K/mm3 Metamyelocytes # 0.0 K/mm3 Myelocytes # 0.0 K/mm3 Promyelocytes # 0.0 K/mm3 Blast Cells # 0.0 K/mm3 WBC Morphology Not Reportable Hypersegmented Neuts Not Reportable Hyposegmented Neuts Not Reportable Hypogranular Neuts Not Reportable Smudge Cells Not Reportable Toxic Granulation Not Reportable Toxic Vacuolation Not Reportable Dohle Bodies Not Reportable Pelger-Huet Anomaly Not Reportable Hailey Rods Not Reportable Platelet Estimate Consistent w auto Clumped Platelets Not Reportable Plt Clumps, EDTA Not Reportable Large Platelets Not Reportable Giant Platelets Not Reportable Platelet Satelliting Not Reportable Plt Morphology Comment Not Reportable RBC Morphology Normal Dimorphic RBCs Not Reportable Polychromasia Not Reportable Hypochromasia Not Reportable Poikilocytosis Not Reportable Anisocytosis Not Reportable Microcytosis Not Reportable Macrocytosis Not Reportable Spherocytes Not Reportable Pappenheimer Bodies Not Reportable Sickle Cells Not Reportable Target Cells Not Reportable Tear Drop Cells Not Reportable Ovalocytes Not Reportable Helmet Cells Not Reportable Gonzalez-[place] Bodies Not Reportable [place] Rings Not Reportable [place] Cells Not Reportable Bite Cells Not Reportable Crenated Cell Not Reportable Elliptocytes Not Reportable Acanthocytes (Spur) Not Reportable Rouleaux Not Reportable Hemoglobin C Crystals Not Reportable Schistocytes Not Reportable Malaria parasites Not Reportable Juan C Bodies Not Reportable Hem Pathologist Commnt No Sodium (137-145) mmol/L Potassium (3.6-5.0) mmol/L Chloride (98-107) mmol/L Carbon Dioxide (22-30) mmol/L Anion Gap mmol/L BUN (9-20) mg/dL Creatinine (0.8-1.5) mg/dL Estimated GFR ml/min BUN/Creatinine Ratio % Glucose (75-100) mg/dL Calcium (8.4-10.2) mg/dL Urine Color (Yellow) Urine Turbidity (Clear) Urine pH (5.0-7.0) Ur Specific [place] (1.003-1.030) Urine Protein (Negative) mg/dL Urine Glucose (UA) (Negative) mg/dL Urine Ketones (Negative) mg/dL Urine Blood (Negative) Urine Nitrite (Negative) Urine Bilirubin (Negative) Urine Urobilinogen (<2.0) mg/dL Ur Leukocyte Esterase (Negative) Urine WBC (Auto) (0.0-6.0) /HPF Urine RBC (Auto) (0.0-6.0) /HPF Urine Mucus /HPF Urine Opiates Screen Urine Methadone Screen Ur Barbiturates Screen Ur Phencyclidine Scrn Ur Amphetamines Screen U Benzodiazepines Scrn Urine Cocaine Screen U Marijuana (THC) Screen Drugs of Abuse Note Plasma/Serum Alcohol < 0.01 (0-0.07) gm% - Medical Decision Making Patient is suspected of drug seeking given that he was prescribed a 30 day supply of Xanax within 2 weeks ago. No benzos in his urine currently. Patient states he has been out of his medicines for at least one week therefore, I'm less concerned about acute benzodiazepine withdrawal. Patient will be given Vistaril when necessary anxiety encouraged to follow up with his psychiatrist for further management of his other psychiatric medication. - Differential Diagnosis anxiety, drug-seeking, drug abuse Critical Care Time: No Critical care attestation.: If time is entered above; I have spent that time in minutes in the direct care of this critically ill patient, excluding procedure time. ED Disposition Clinical Impression: Anxiety Disposition: DC-01 TO HOME OR SELFCARE Is pt being admited?: No Does the pt Need Aspirin: No Condition: Stable Instructions: Anxiety (ED) Additional Instructions: Take the medication as needed for anxiety. Return if symptoms worsen. Follow- up with your psychiatrist for further meds Prescriptions: hydrOXYzine PAMOATE [Vistaril] 50 mg PO Q6HR PRN #20 capsule PRN Reason: Pain Referrals: your, psychiatrist [Other] - 2-3 Days Time of Disposition: 20:57
== END 2016-12-09 21:11 | disposition home or self-care (01) ==
LOC: ED 23:26 → EEVIPCON 23:26 → ED 12-09 21:11
DX: F41.9 Anxiety disorder, unspecified (principal); F31.9 Bipolar disorder, unspecified; I10 Essential (primary) hypertension; F20.9 Schizophrenia, unspecified; F41.0 Panic disorder [episodic paroxysmal anxiety]; F17.210 Nicotine dependence, cigarettes, uncomplicated
CPT/HCPCS: 36415; 80048; 80307; 81001; 85007; 85025; 99284; G0480; 80320

== ENCOUNTER 2016-12-11 16:56 | Emergency (ER) | payer MEDICARE ==
[2016-12-11 17:44] LABS: Basophils % (Auto) 0.8 % (0.0-1.8); Eosinophils % (Auto) 3.5 % (0.0-4.3); Hematocrit 43.3 % (35.5-45.6); Mean Corpuscular HGB Conc 33 % (32-34); Mean Corpuscular Hemoglobin 28 pg (28-32); Mean Corpuscular Volume 87 fl (84-94); Platelet Count 448 K/mm3 (140-440); Red Blood Count 4.97 M/mm3 (3.65-5.03); Red Cell Distribution Width 12.9 % (13.2-15.2); White Blood Count 11.9 K/mm3 (4.5-11.0)
[2016-12-11 18:10] LABS: Anion Gap 21 mmol/L; Blood Urea Nitrogen 10 mg/dL (9-20); Calcium 9.8 mg/dL (8.4-10.2); Carbon Dioxide 26 mmol/L (22-30); Chloride 98.3 mmol/L (98-107); Glucose 87 mg/dL (75-100); Potassium 4.4 mmol/L (3.6-5.0); Sodium 141 mmol/L (137-145)
[2016-12-11 20:25] VITALS: BP 141/95
--- NOTE | 2016-12-11 20:40 | Emergency Department Report ---
HPI - General Chief Complaint: Chest Pain Time Seen by Provider: 12/11/16 20:30 - HPI HPI: 41-year-old -Citizen Of [place] male presents to the ED with chest pain chest pain , onset 1 hour prior to evaluation while at rest, Location: mid chest Radiation: none, Severity now (0-10): 2, Severity at worst (0-10): 8 Duration: 5 minutes characterized as: sharp. The pain is relieved with nothing, Patient denies exertional pain, patient denies pleuritic pain. Patient denies associated symptoms, such as nausea/vomiting, no diaphoresis, no shortness of breath. ED Past Medical Hx - Past Medical History Previous Medical History?: Yes Hx Hypertension: Yes Hx Psychiatric Treatment: Yes (PANIC ATTACKS/DEPRESSION/ ANXIETY/SCHIZOPHRENIA/ bipolar) - Surgical History Past Surgical History?: No Additional Surgical History: TONSILLECTOMY - Family History Family history: hypertension - Social History Smoking Status: Never Smoker Substance Use Type: None, Alcohol - Medications Home Medications: Home Medications Medication Instructions Recorded Confirmed Last Taken Type Hydroxyzine HCl 50 mg PO Q12H PRN #12 tablet 12/15/14 Unknown Rx Acetaminophen/Codeine [Tylenol 1 tab PO Q8H PRN #12 tablet 12/22/14 Unknown Rx /Codeine # 3 tab] Ibuprofen [Motrin 800 MG tab] 800 mg PO Q8HR PRN #30 tablet 09/29/16 Unknown Rx levETIRAcetam [Keppra TAB] 500 mg PO BID #40 tablet 09/29/16 Unknown Rx hydrOXYzine PAMOATE [Vistaril] 50 mg PO Q6HR PRN #20 capsule 12/09/16 Unknown Rx ED Review of Systems ROS: Stated complaint: CHEST PAIN Other details as noted in HPI Comment: All other systems reviewed and negative ENT: denies: ear pain, throat pain Respiratory: denies: cough, shortness of breath, wheezing Cardiovascular: chest pain Physical Exam - Physical Exam Vital Signs: Vital Signs 12/11/16 12/11/16 17:02 20:21 Temperature 98.6 F 98.7 F Pulse Rate 115 H 100 H Respiratory 18 22 Rate Blood Pressure 127/92 Blood Pressure 141/95 [Left] O2 Sat by Pulse 100 100 Oximetry Physical Exam: Physical Exam: - General Limitations: No Limitations General appearance: alert, in no apparent distress, - Head Head exam: Present: atraumatic, normocephalic - Eye Eye exam: Present: normal appearance - ENT ENT exam: Present: mucous membranes moist - Neck Neck exam: Present: normal inspection - Respiratory Respiratory exam: Present: normal lung sounds bilaterally. Absent: respiratory distress - Cardiovascular Cardiovascular Exam: Present: normal rhythm, normal rate. Absent: systolic murmur, diastolic murmur, rubs, gallop - GI/Abdominal GI/Abdominal exam: Present: soft, normal bowel sounds - Extremities Exam Extremities exam: Present: normal inspection - Back Exam Back exam: Present: normal inspection - Neurological Exam Neurological exam: Present: alert, oriented X3 - Psychiatric Psychiatric exam: normal affect and mood - Skin Skin exam: Present: warm, dry, intact, normal color. Absent: rash ED Course Vital Signs 12/11/16 12/11/16 17:02 20:21 Temperature 98.6 F 98.7 F Pulse Rate 115 H 100 H Respiratory 18 22 Rate Blood Pressure 127/92 Blood Pressure 141/95 [Left] O2 Sat by Pulse 100 100 Oximetry - Reevaluation(s) Reevaluation #1: 12/11/16 20:47 Admission was offered the patient refused. ED Medical Decision Making - Lab Data Result diagrams: 12/11/16 17:13 12/11/16 17:13 Critical care attestation.: If time is entered above; I have spent that time in minutes in the direct care of this critically ill patient, excluding procedure time. ED Disposition Clinical Impression: Atypical chest pain Disposition: DC-01 TO HOME OR SELFCARE Is pt being admited?: No Does the pt Need Aspirin: No Condition: Stable Instructions: Chest Pain (ED) Referrals: PRIMARY CAREMD [Primary Care Provider] - 3-5 Days CHRISTOPHER ALEXANDRE MD [Staff Physician] - 3-5 Days
[2016-12-11] MEDS ORDERED: ASPIRIN PO SCH (21:00)
== END 2016-12-11 21:49 | disposition home or self-care (01) ==
LOC: ED 16:56
DX: R07.89 Other chest pain (principal); I10 Essential (primary) hypertension
CPT/HCPCS: 36415; 80048; 84484; 85025; 93005; 93010

== ENCOUNTER 2017-01-13 22:17 | Emergency (ER) | payer MEDICARE ==
[2017-01-13 22:54] LABS: Basophils % (Auto) 0.4 % (0.0-1.8); Eosinophils % (Auto) 2.3 % (0.0-4.3); Hemoglobin 15.1 gm/dl (11.8-15.2); Mean Corpuscular HGB Conc 34 % (32-34); Mean Corpuscular Hemoglobin 28 pg (28-32); Mean Corpuscular Volume 84 fl (84-94); Platelet Count 298 K/mm3 (140-440); Red Blood Count 5.38 M/mm3 (3.65-5.03); Red Cell Distribution Width 13.8 % (13.2-15.2)
[2017-01-13 23:14] LABS: Anion Gap 22 mmol/L; BUN/Creatinine Ratio 7; Blood Urea Nitrogen 6 mg/dL (9-20); Calcium 9.3 mg/dL (8.4-10.2); Carbon Dioxide 26 mmol/L (22-30); Chloride 97.8 mmol/L (98-107); Glucose 83 mg/dL (75-100); Potassium 3.7 mmol/L (3.6-5.0); Sodium 142 mmol/L (137-145)
[2017-01-14 00:16] LABS: Urine Drugs of Abuse Note Disclamer
[2017-01-14 00:22] LABS: Bilirubin,Urine NEG (Negative); Blood,Urine NEG (Negative); Ketones,Urine NEG (Negative); Leukocyte Esterase,Urine NEG (Negative); Nitrite,Urine NEG (Negative); Protein,Urine <15 mg/dL mg/dL (Negative); WBC,Urine < 1.0 /HPF (0.0-6.0)
--- NOTE | 2017-01-14 03:54 | Emergency Department Report ---
ED Alcohol HPI - General Chief Complaint: Psych Stated Complaint: MEDICAL CLEAR. Time Seen by Provider: 01/14/17 02:17 Source: patient, RN notes reviewed Mode of arrival: Ambulatory Limitations: No Limitations - History of Present Illness Initial Comments: This is a 41-year-old male who was previously unknown to this provider. He presents to the ER with a complaint of alcohol dependence and requests clearance for detox. He is not homicidal or suicidal, he does not have headache or neck pain, there is no chest pain and abdominal pain, he has no homicidality or suicidality, he does not have access to guns or firearms, and he denies coingestions. The patient reports chronic lower back pain for years, there is no bladder or bowel retention/incontinence. 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 denies: nausea, vomiting, syncope, seizure, diaphoresis, tremors, abdominal pain, hematemesis, depression, suicidality Treatments Prior to Arrival: none - Related Data Previous Rx's Medication Instructions Recorded Last Taken Type levETIRAcetam [Keppra TAB] 500 mg PO BID #40 tablet 09/29/16 Unknown Rx hydrOXYzine PAMOATE [Vistaril] 50 mg PO Q6HR PRN #20 capsule 12/09/16 Unknown Rx Allergies Allergy/AdvReac Type Severity Reaction Status Date / Time No Known Allergies Allergy Verified 12/22/14 10:09 ED Review of Systems ROS: Stated complaint: MEDICAL CLEAR. Other details as noted in HPI Constitutional: denies: fever Eyes: denies: vision change ENT: denies: epistaxis Respiratory: denies: cough Cardiovascular: denies: chest pain Genitourinary: denies: dysuria Musculoskeletal: back pain Skin: denies: lesions Neurological: denies: confusion, abnormal gait Psychiatric: denies: homicidal thoughts, suicidal thoughts ED Past Medical Hx - Past Medical History Previous Medical History?: Yes Hx Hypertension: Yes Hx Psychiatric Treatment: Yes (PANIC ATTACKS/DEPRESSION/ ANXIETY/SCHIZOPHRENIA/ bipolar) - Surgical History Past Surgical History?: Yes Additional Surgical History: TONSILLECTOMY - Social History Smoking Status: Current Every Day Smoker Substance Use Type: Alcohol, Marijuana - Medications Home Medications: Home Medications Medication Instructions Recorded Confirmed Last Taken Type levETIRAcetam [Keppra TAB] 500 mg PO BID #40 tablet 09/29/16 01/14/17 Unknown Rx hydrOXYzine PAMOATE [Vistaril] 50 mg PO Q6HR PRN #20 capsule 12/09/16 01/14/17 Unknown Rx ED Physical Exam - General Limitations: No Limitations General appearance: alert, in no apparent distress - Head Head exam: Present: atraumatic, normocephalic - Eye Eye exam: Present: normal appearance, EOMI. Absent: nystagmus - ENT ENT exam: Present: normal exam, normal orophraynx, mucous membranes moist, normal external ear exam - Neck Neck exam: Present: normal inspection, full ROM. Absent: tenderness, meningismus - Respiratory Respiratory exam: Present: normal lung sounds bilaterally. Absent: respiratory distress, wheezes, rales, chest wall tenderness, accessory muscle use, decreased breath sounds, prolonged expiratory - Cardiovascular Cardiovascular Exam: Present: regular rate, normal rhythm, normal heart sounds. Absent: systolic murmur, diastolic murmur, rubs, gallop - GI/Abdominal GI/Abdominal exam: Present: soft, normal bowel sounds. Absent: distended, tenderness, guarding, rebound, rigid, pulsatile mass - Rectal Rectal exam: Present: deferred - Extremities Exam Extremities exam: Present: normal inspection, full ROM, normal capillary refill. Absent: pedal edema, joint swelling, calf tenderness - Back Exam Back exam: Present: normal inspection, full ROM. Absent: tenderness, CVA tenderness (R), CVA tenderness (L), muscle spasm, paraspinal tenderness, vertebral tenderness - Neurological Exam Neurological exam: Present: alert, oriented X3, normal gait, other (Extraocular movements intact. Tongue midline. No facial droop. Facial sensation intact to light touch in the V1, V2, V3 distribution bilaterally. 5 and 5 strength in 4 extremities.. Sensation is intact to light touch in 4 extremities.). Absent : motor sensory deficit - Psychiatric Psychiatric exam: Present: normal affect, normal mood. Absent: homicidal ideation, suicidal ideation - Skin Skin exam: Present: warm, dry, intact, normal color. Absent: rash ED Course Vital Signs 01/13/17 01/14/17 22:30 03:54 Temperature 98.7 F 98.7 F Pulse Rate 112 H 93 H Respiratory 24 16 Rate Blood Pressure 152/101 Blood Pressure 120/75 [Left] O2 Sat by Pulse 96 97 Oximetry ED Medical Decision Making - Lab Data Result diagrams: 01/13/17 22:41 01/13/17 22:41 Vital Signs 01/13/17 01/14/17 22:30 03:54 Temperature 98.7 F 98.7 F Pulse Rate 112 H 93 H Respiratory 24 16 Rate Blood Pressure 152/101 Blood Pressure 120/75 [Left] O2 Sat by Pulse 96 97 Oximetry Labs 01/13/17 01/13/17 01/13/17 22:41 22:41 22:41 WBC 7.0 RBC 5.38 H Hgb 15.1 Hct 45.0 MCV 84 MCH 28 MCHC 34 RDW 13.8 Plt Count 298 Lymph % (Auto) 29.7 Haakon % (Auto) 9.5 H Eos % (Auto) 2.3 Baso % (Auto) 0.4 Lymph # 2.1 Haakon # 0.7 Eos # 0.2 Baso # 0.0 Seg Neutrophils % 58.1 Seg Neutrophils # 4.1 Sodium 142 Potassium 3.7 Chloride 97.8 L Carbon Dioxide 26 Anion Gap 22 BUN 6 L Creatinine 0.9 Estimated GFR > 60 BUN/Creatinine Ratio 7 Glucose 83 Calcium 9.3 Urine Color Urine Turbidity Urine pH Ur Specific [place] Urine Protein Urine Glucose (UA) Urine Ketones Urine Blood Urine Nitrite Urine Bilirubin Urine Urobilinogen Ur Leukocyte Esterase Urine WBC (Auto) Urine RBC (Auto) U Epithel Cells (Auto) Urine Opiates Screen Urine Methadone Screen Ur Barbiturates Screen Ur Phencyclidine Scrn Ur Amphetamines Screen U Benzodiazepines Scrn Urine Cocaine Screen U Marijuana (THC) Screen Drugs of Abuse Note Plasma/Serum Alcohol 0.19 H 01/13/17 01/13/17 Unknown Unknown WBC RBC Hgb Hct MCV MCH MCHC RDW Plt Count Lymph % (Auto) [place] % (Auto) Eos % (Auto) Baso % (Auto) Lymph # Haakon # Eos # Baso # Seg Neutrophils % Seg Neutrophils # Sodium Potassium Chloride Carbon Dioxide Anion Gap BUN Creatinine Estimated GFR BUN/Creatinine Ratio Glucose Calcium Urine Color Yellow Urine Turbidity Clear Urine pH 7.0 Ur Specific [place] 1.008 Urine Protein <15 mg/dl Urine Glucose (UA) Neg Urine Ketones Neg Urine Blood Neg Urine Nitrite Neg Urine Bilirubin Neg Urine Urobilinogen 4.0 Ur Leukocyte Esterase Neg Urine WBC (Auto) < 1.0 Urine RBC (Auto) 2.0 U Epithel Cells (Auto) < 1.0 Urine Opiates Screen Presumptive negative Urine Methadone Screen Presumptive negative Ur Barbiturates Screen Presumptive negative Ur Phencyclidine Scrn Presumptive negative Ur Amphetamines Screen Presumptive negative U Benzodiazepines Scrn Presumptive negative Urine Cocaine Screen Presumptive negative U Marijuana (THC) Screen Presumptive negative Drugs of Abuse Note Disclamer Plasma/Serum Alcohol - Medical Decision Making Differential diagnosis: Alcohol intoxication, alcohol dependence, medical clearance for detox Assessment and plan: 41-year-old male requesting medical clearance for alcohol detox. He is afebrile with reassuring vital signs, walks with a steady gait, has a GCS of 15 , with an anion score is 0. He is not homicidal or suicidal, the patient is pleasant, calm and cooperative, still slightly intoxicated clinically at this time, does not require 1013. Back pain is chronic, walks with a steady gait, no motor or sensory deficits, no clinical indication epidural compression syndrome, no back or abdominal tenderness, I see no reason to pursue emergent imaging for this at this time. Case presented to the crisis team, there is no immediate medical contraindication at this time to alcohol detox/rehabilitation. However, once the patient mahsa up, if he wishes to be discharged to follow-up as an outpatient, this would be reasonable as well. Critical care attestation.: If time is entered above; I have spent that time in minutes in the direct care of this critically ill patient, excluding procedure time. ED Disposition Clinical Impression: Alcohol dependence Disposition: DC/TX-65 PSY HOSP/PSY UNIT Is pt being admited?: No Does the pt Need Aspirin: No Condition: Good Referrals: PRIMARY CARE, [Primary Care Provider] - 3-5 Days
[2017-01-14] MEDS ORDERED: ZOFRAN ODT PO PRN (05:08)
[2017-01-14] MEDS ORDERED: ATIVAN IM PRN (05:08)
[2017-01-14] MEDS ORDERED: TYLENOL PO PRN (05:08)
--- NOTE | 2017-01-14 11:29 | Consultation ---
History of Present Illness - Reason for Consult Consult date: 01/14/17 Reason for consult: Psychiatry Follow-up Requesting physician: BABAR MALDONADO - Chief Complaint Chief complaint: "I want help" - History of Present Psychiatric Illness He presents to the ER with a complaint of alcohol dependence and requests clearance for detox. This patient is known to me. Today patient is calm and cooperative during the assessment. He stated drinking alcohol for several years. He stated started drinking excessive 2 days ago. Patient had a recent admission to a mental health facility for detox and rehabs services. Patient has an hx of reporting to [facility] ER when intoxicated. He denies SI/HI's and AVH' s. He denies being depressed or having manic symptoms. Patient has a dx of schizophrenia/bipolar and take Paxil and Seroquel. He stated being compliant with his medications. He denies recreational drug use. Medications and Allergies Allergies Allergy/AdvReac Type Severity Reaction Status Date / Time No Known Allergies Allergy Verified 12/22/14 10:09 Home Medications Medication Instructions Recorded Confirmed Last Taken Type levETIRAcetam [Keppra TAB] 500 mg PO BID #40 tablet 09/29/16 01/14/17 Unknown Rx hydrOXYzine PAMOATE [Vistaril] 50 mg PO Q6HR PRN #20 capsule 12/09/16 01/14/17 Unknown Rx Active Meds: Active Medications Acetaminophen (Tylenol) 650 mg PO Q6HR PRN PRN Reason: Pain Lorazepam (Ativan) 2 mg IM Q4HR PRN PRN Reason: Agitation Ondansetron HCl (Zofran Odt) 4 mg PO Q6HR PRN PRN Reason: Nausea Past psychiatric history - Past Medical History Past Medical History: hypertension Past Surgical History: No surgical history - past Psychiatric treatment and history Psych: Bipolar, Schizophrenia psychiatric treatment history: Multiple inpatient psy settings. Denies a fam psy hx. - Social History Social history: lives with family Mental Status Exam - Vital signs Last Vital Signs Temp 98.7 F 01/14/17 03:54 Pulse 93 H 01/14/17 03:54 Resp 16 01/14/17 03:54 BP 120/75 01/14/17 03:54 Pulse Ox 97 01/14/17 03:54 - Exam Narrative exam: MSE: Appearance: calm, cooperative Behavior: regular eye contact Speech: regular rate and tone Mood: "okay" Affect: congruent to mood Thought Process: linear Thought Content: denies SI/HI's and AVH's Motor Activity: lying in bed Cognition: A/O x3 Insight: fair Judgment: fair Results Result Diagrams: 01/13/17 22:41 01/13/17 22:41 Abnormal lab results 01/13/17 01/13/17 01/13/17 Range/Units 22:41 22:41 22:41 RBC 5.38 H (3.65-5.03) M/mm3 [place] % (Auto) 9.5 H (0.0-7.3) % Chloride 97.8 L (98-107) mmol/L BUN 6 L (9-20) mg/dL Plasma/Serum Alcohol 0.19 H (0-0.07) gm% All other labs normal. Assessment and Plan Assessment and plan: Impression: Historical Dx: Schizophrenia/Bipolar DO. Alcohol Use DO. Today patient is calm and cooperative during the assessment. No acute withdrawals noted. DDx: R/O MDD Recommendation/Plan: Patient will volunteer for [facility] once discharged.
[2017-01-14 14:38] VITALS: BP 144/99
--- NOTE | 2017-01-14 16:36 | Emergency Department Report ---
ED Psych HPI - General Chief Complaint: Psych Stated Complaint: MEDICAL CLEAR. Time Seen by Provider: 01/14/17 02:17 Source: patient, RN notes reviewed Mode of arrival: Ambulatory - Related Data Previous Rx's Medication Instructions Recorded Last Taken Type levETIRAcetam [Keppra TAB] 500 mg PO BID #40 tablet 09/29/16 Unknown Rx hydrOXYzine PAMOATE [Vistaril] 50 mg PO Q6HR PRN #20 capsule 12/09/16 Unknown Rx Allergies Allergy/AdvReac Type Severity Reaction Status Date / Time No Known Allergies Allergy Verified 12/22/14 10:09 ED Review of Systems ROS: Stated complaint: MEDICAL CLEAR. Other details as noted in HPI Constitutional: denies: fever Eyes: denies: vision change ENT: denies: epistaxis Respiratory: denies: cough Cardiovascular: denies: chest pain Genitourinary: denies: dysuria Musculoskeletal: back pain Skin: denies: lesions Neurological: denies: confusion, abnormal gait Psychiatric: denies: homicidal thoughts, suicidal thoughts ED Past Medical Hx - Past Medical History Previous Medical History?: Yes Hx Hypertension: Yes Hx Psychiatric Treatment: Yes (PANIC ATTACKS/DEPRESSION/ ANXIETY/SCHIZOPHRENIA/ bipolar) - Surgical History Past Surgical History?: Yes Additional Surgical History: TONSILLECTOMY - Social History Smoking Status: Current Every Day Smoker Substance Use Type: Alcohol, Marijuana - Medications Home Medications: Home Medications Medication Instructions Recorded Confirmed Last Taken Type levETIRAcetam [Keppra TAB] 500 mg PO BID #40 tablet 09/29/16 01/14/17 Unknown Rx hydrOXYzine PAMOATE [Vistaril] 50 mg PO Q6HR PRN #20 capsule 12/09/16 01/14/17 Unknown Rx ED Physical Exam - General Limitations: No Limitations General appearance: alert, in no apparent distress ED Course Vital Signs 01/13/17 01/14/17 01/14/17 22:30 03:54 10:00 Temperature 98.7 F 98.7 F 98.6 F Pulse Rate 112 H 93 H 82 Respiratory 24 16 18 Rate Blood Pressure 152/101 Blood Pressure 120/75 144/99 [Left] O2 Sat by Pulse 96 97 97 Oximetry ED Medical Decision Making - Lab Data Result diagrams: 01/13/17 22:41 01/13/17 22:41 Critical care attestation.: If time is entered above; I have spent that time in minutes in the direct care of this critically ill patient, excluding procedure time. ED Disposition Clinical Impression: Alcohol dependence Disposition: DC-01 TO HOME OR SELFCARE Is pt being admited?: No Condition: Good Instructions: Medical Clearance for Substance Abuse Treatment (ED), Abuse of Alcohol (ED) Additional Instructions: Please follow up with the resources provided by psychiatry. Referrals: PRIMARY CARE, [Primary Care Provider] - 3-5 Days
== END 2017-01-14 17:47 | disposition home or self-care (01) ==
LOC: ED 22:17
DX: F10.20 Alcohol dependence, uncomplicated (principal); I10 Essential (primary) hypertension; F17.200 Nicotine dependence, unspecified, uncomplicated; F12.10 Cannabis abuse, uncomplicated
CPT/HCPCS: 36415; 80048; 80307; 81001; 85025; 99283; G0480; 80320

== ENCOUNTER 2017-01-23 22:20 | Emergency (ER) | payer MEDICARE ==
[2017-01-23 22:31] VITALS: BP 127/94
[2017-01-23 22:48] LABS: Urine Drugs of Abuse Note Disclamer
[2017-01-23 23:00] LABS: Bilirubin,Urine NEG (Negative); Blood,Urine NEG (Negative); Ketones,Urine NEG (Negative); Leukocyte Esterase,Urine NEG (Negative); Mucus,Urine FEW /HPF; Nitrite,Urine NEG (Negative); Protein,Urine <15 mg/dL mg/dL (Negative); RBC,Urine < 1.0 /HPF (0.0-6.0); WBC,Urine < 1.0 /HPF (0.0-6.0)
[2017-01-23 23:44] LABS: Anion Gap 21 mmol/L; BUN/Creatinine Ratio 6; Blood Urea Nitrogen 6 mg/dL (9-20); Calcium 9.2 mg/dL (8.4-10.2); Carbon Dioxide 25 mmol/L (22-30); Glucose 98 mg/dL (75-100); Potassium 4.6 mmol/L (3.6-5.0); Sodium 145 mmol/L (137-145)
[2017-01-23 23:59] LABS: Basophils % (Auto) 1.3 % (0.0-1.8); Eosinophils % (Auto) 2.1 % (0.0-4.3); Hematocrit 47.4 % (35.5-45.6); Hemoglobin 15.4 gm/dl (11.8-15.2); Mean Corpuscular HGB Conc 33 % (32-34); Mean Corpuscular Hemoglobin 28 pg (28-32); Mean Corpuscular Volume 86 fl (84-94); Red Blood Count 5.51 M/mm3 (3.65-5.03); Red Cell Distribution Width 15.1 % (13.2-15.2); White Blood Count 6.4 K/mm3 (4.5-11.0)
[2017-01-24 00:04] LABS: Platelet Count 422 K/mm3 (140-440)
== END 2017-01-24 02:26 | disposition left against medical advice (07) ==
LOC: ED 22:20
DX: F10.129 Alcohol abuse with intoxication, unspecified (principal); Z53.21 Procedure and treatment not carried out due to patient leaving prior to being seen by health care provider
CPT/HCPCS: 36415; 80048; 80307; 81001; 85025; G0480; 80320

== ENCOUNTER 2017-02-10 00:55 | Emergency (ER) | payer MEDICARE ==
[2017-02-10 08:40] VITALS: BP 152/98
--- NOTE | 2017-02-10 08:52 | Emergency Department Report ---
ED Anxiety HPI - General Chief Complaint: Anxiety Stated Complaint: PANIC ATTACK Time Seen by Provider: 02/10/17 08:51 Source: patient, EMS Mode of arrival: Ambulatory - History of Present Illness Initial Comments: Patient here transported by EMS and told EMS that he felt anxious. They reported the patient was uncooperative in giving information. Patient said he was having a panic attack . Patient has a history of panic attack, depression, anxiety, schizophrenia and bipolar disorder. He also has a history of seizure disorder needs on Keppra. He said he feels depressed and he would like to speak to a counselor and would like to go to [facility]. He denies any suicide or homicide ideation. Patient denies any pain. Denies any physical problems. Patient said that he was in care home for few days and he was released and he is just very anxious because they took him to care home by mistake. He said he is not having an panic attack at present but he does feel depressed and would like to talk to someone MD Complaint: anxiety, heart racing -: Last night Symptoms: palpitations, other (denies any chest pain or shortness of breath) Place: home Previous History of Same: Yes Severity: mild Quality: improving, similar to prior episodes Provoking factors: emotional stress Improves With: rest Worsens With: thinking about event Associated symptoms: palpitations. denies: chest pain, shortness of breath, diaphoresis, denies other symptoms, confusion, cough, fever/chills, headaches, anorexia, malaise, nausea/vomiting, rash, seizure, syncope, weakness - Related Data Home Medications: Previous Rx's Medication Instructions Recorded Last Taken Type levETIRAcetam [Keppra TAB] 500 mg PO BID #40 tablet 09/29/16 Unknown Rx hydrOXYzine PAMOATE [Vistaril] 50 mg PO Q6HR PRN #20 capsule 12/09/16 Unknown Rx Allergies/Adverse Reactions: Allergies Allergy/AdvReac Type Severity Reaction Status Date / Time No Known Allergies Allergy Verified 12/22/14 10:09 ED Review of Systems ROS: Stated complaint: PANIC ATTACK Other details as noted in HPI Comment: All other systems reviewed and negative Constitutional: no symptoms reported Respiratory: no symptoms reported Cardiovascular: palpitations. denies: chest pain, dyspnea on exertion, edema, syncope Gastrointestinal: denies: abdominal pain, nausea, vomiting, diarrhea, constipation, hematemesis, melena, hematochezia Genitourinary: denies: urgency, dysuria, frequency, hematuria, discharge, testicular pain, testicular mass Musculoskeletal: denies: back pain, joint swelling, arthralgia, myalgia Skin: denies: rash, pruritus Neurological: denies: headache, weakness, numbness, paresthesias, confusion, abnormal gait, vertigo Psychiatric: anxiety. denies: auditory hallucinations, visual hallucinations, homicidal thoughts, suicidal thoughts ED Past Medical Hx - Past Medical History Previous Medical History?: Yes Hx Hypertension: Yes Hx Seizures: Yes Hx Psychiatric Treatment: Yes (PANIC ATTACKS/DEPRESSION/ ANXIETY/SCHIZOPHRENIA/ bipolar) - Surgical History Past Surgical History?: Yes Additional Surgical History: TONSILLECTOMY - Family History Family history: no significant - Social History Smoking Status: Current Every Day Smoker Substance Use Type: None - Medications Home Medications: Home Medications Medication Instructions Recorded Confirmed Last Taken Type levETIRAcetam [Keppra TAB] 500 mg PO BID #40 tablet 09/29/16 01/14/17 Unknown Rx hydrOXYzine PAMOATE [Vistaril] 50 mg PO Q6HR PRN #20 capsule 12/09/16 01/14/17 Unknown Rx ED Physical Exam - General Limitations: No Limitations General appearance: alert, in no apparent distress - Head Head exam: Present: atraumatic, normocephalic, normal inspection - Eye Eye exam: Present: normal appearance, PERRL, EOMI Pupils: Present: normal accommodation - ENT ENT exam: Present: normal exam, normal orophraynx, mucous membranes moist, TM's normal bilaterally, normal external ear exam - Neck Neck exam: Present: normal inspection, full ROM, other (no C-spine tenderness). Absent: tenderness, meningismus, lymphadenopathy, thyromegaly - Respiratory Respiratory exam: Present: normal lung sounds bilaterally. Absent: respiratory distress, wheezes, rales, rhonchi, stridor, chest wall tenderness, accessory muscle use, decreased breath sounds, prolonged expiratory - Cardiovascular Cardiovascular Exam: Present: normal rhythm, tachycardia, normal heart sounds. Absent: systolic murmur, diastolic murmur ED Course Vital Signs 02/10/17 02/10/17 02/10/17 01:05 04:57 08:39 Temperature 98.6 F 98.8 F Pulse Rate 103 H 119 H 98 H Respiratory 20 18 18 Rate Blood Pressure 131/96 157/107 Blood Pressure 152/98 [Left] O2 Sat by Pulse 96 98 99 Oximetry - Reevaluation(s) Reevaluation #1: 02/10/17 10:48 Patient seen by mental health counselor 's name is Anne. Ratio spoke with patient and informed me that patient is not suicidal or homicidal and patient does have outpatient psychiatrist and mental health support. She said that she referred patient back to outpatient mental health program and patient does not need to go to [facility]. She said that patient has a plan and although he is depressed he has plans to stay with his mother and he agreed that he will follow -up at his outpatient mental health clinic to manage his chronic mental health problem. Patient is stable at present and he said he feels better and ready to go home. Initially, I was told to order mental health labs and patient but patient is not going to facility therefore he does not need to be medically cleared. His CBC and BMP is stable. Blood alcohol is pending but patient does not appears intoxicated. He is alert and oriented 4 with normal gait. Urinalysis and urine drug screen were canceled. ED Medical Decision Making - Lab Data Result diagrams: 02/10/17 09:42 02/10/17 09:42 Lab Results 02/10/17 02/10/17 Range/Units 09:42 09:42 WBC 8.6 (4.5-11.0) K/mm3 RBC 5.53 H (3.65-5.03) M/mm3 Hgb 15.7 H (11.8-15.2) gm/dl Hct 47.0 H (35.5-45.6) % MCV 85 (84-94) fl MCH 28 (28-32) pg MCHC 33 (32-34) % RDW 13.9 (13.2-15.2) % Plt Count 298 (140-440) K/mm3 Lymph % (Auto) 20.2 (13.4-35.0) % [place] % (Auto) 10.7 H (0.0-7.3) % Eos % (Auto) 0.8 (0.0-4.3) % Baso % (Auto) 0.4 (0.0-1.8) % Lymph # 1.7 (1.2-5.4) K/mm3 [place] # 0.9 H (0.0-0.8) K/mm3 Eos # 0.1 (0.0-0.4) K/mm3 Baso # 0.0 (0.0-0.1) K/mm3 Seg Neutrophils % 67.9 (40.0-70.0) % Seg Neutrophils # 5.8 (1.8-7.7) K/mm3 Sodium 139 (137-145) mmol/L Potassium 3.7 (3.6-5.0) mmol/L Chloride 97.6 L (98-107) mmol/L Carbon Dioxide 27 (22-30) mmol/L Anion Gap 18 mmol/L BUN 8 L (9-20) mg/dL Creatinine 0.8 (0.8-1.5) mg/dL Estimated GFR > 60 ml/min BUN/Creatinine Ratio 10 % Glucose 94 (75-100) mg/dL Calcium 9.2 (8.4-10.2) mg/dL - EKG Data -: EKG Interpreted by Me (interpreted by attending physician in the ED) EKG shows normal: sinus rhythm (94 bpm) - EKG Data Interpretation: [facility] - Medical Decision Making ED course: Patient here reports that he is feeling very depressed and would like to speak to a mental health counselor to try to see if he can get in to [facility]. Patient denies any suicide or homicide ideation. He said he was having a panic attack which had subsided. He was brought to the hospital by EMS. Patient physical exam is normal and he denies any pain. EKG with no acute findings. CBC and BMP stable. Sepideh, who is the mental health counselor came and spoke with patient and it was agreed per mental health counselor that patient has a plan to go stay with his mom and he feels much better and patient does have access to outpatient mental health clinic which he will be calling today to schedule an appointment for follow-up visit. She reports that patient does not need to be admitted to inpatient mental health. Patient and reports to me that he feels better he's stable and his medical stay with his mom. 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 He continues to deny suicidal ideation or homicide ideation. Denies any pain. Patient discharged home in stable condition to follow up with his outpatient mental health clinic. Referred to mental health consult similar documentation on counseling. Critical care attestation.: If time is entered above; I have spent that time in minutes in the direct care of this critically ill patient, excluding procedure time. ED Disposition Clinical Impression: Panic attack as reaction to stress, Chronic depression Anxiety disorder, unspecified Qualifiers: Anxiety disorder type: generalized anxiety disorder Qualified Code(s): F41.1 - Generalized anxiety disorder Disposition: DC-01 TO HOME OR SELFCARE Is pt being admited?: No Does the pt Need Aspirin: No Condition: Stable Instructions: Anxiety (ED), Depression (ED) Additional Instructions: Please follow-up with your outpatient mental health clinic Continue taking her medication as prescribed by your mental health provider Referrals: PRIMARY CARE, [Primary Care Provider] - 02/11/17 mental health, provider [Other] - 02/11/17
[2017-02-10 10:19] LABS: Basophils % (Auto) 0.4 % (0.0-1.8); Eosinophils % (Auto) 0.8 % (0.0-4.3); Hemoglobin 15.7 gm/dl (11.8-15.2); Mean Corpuscular HGB Conc 33 % (32-34); Mean Corpuscular Hemoglobin 28 pg (28-32); Mean Corpuscular Volume 85 fl (84-94); Platelet Count 298 K/mm3 (140-440); Red Blood Count 5.53 M/mm3 (3.65-5.03); Red Cell Distribution Width 13.9 % (13.2-15.2); White Blood Count 8.6 K/mm3 (4.5-11.0)
[2017-02-10 10:31] LABS: Anion Gap 18 mmol/L; BUN/Creatinine Ratio 10; Blood Urea Nitrogen 8 mg/dL (9-20); Calcium 9.2 mg/dL (8.4-10.2); Carbon Dioxide 27 mmol/L (22-30); Chloride 97.6 mmol/L (98-107); Glucose 94 mg/dL (75-100); Potassium 3.7 mmol/L (3.6-5.0); Sodium 139 mmol/L (137-145)
== END 2017-02-10 11:57 | disposition home or self-care (01) ==
LOC: ED 00:55
DX: F43.0 Acute stress reaction (principal); F32.9 Major depressive disorder, single episode, unspecified; F41.1 Generalized anxiety disorder; I10 Essential (primary) hypertension; R56.9 Unspecified convulsions; F17.200 Nicotine dependence, unspecified, uncomplicated
CPT/HCPCS: 36415; 80048; 85025; 93005; 93010; 99284; G0480; 80320

== ENCOUNTER 2017-03-26 21:02 | Emergency (ER) | payer MEDICARE ==
[2017-03-26 23:18] LABS: Urine Drugs of Abuse Note Disclamer
[2017-03-26 23:20] LABS: Basophils % (Auto) 0.8 % (0.0-1.8); Hematocrit 41.9 % (35.5-45.6); Hemoglobin 13.8 gm/dl (11.8-15.2); Mean Corpuscular HGB Conc 33 % (32-34); Mean Corpuscular Hemoglobin 29 pg (28-32); Mean Corpuscular Volume 87 fl (84-94); Platelet Count 324 K/mm3 (140-440); Red Blood Count 4.83 M/mm3 (3.65-5.03); Red Cell Distribution Width 16.6 % (13.2-15.2)
[2017-03-26 23:27] LABS: Bilirubin,Urine NEG (Negative); Blood,Urine NEG (Negative); Ketones,Urine NEG (Negative); Leukocyte Esterase,Urine NEG (Negative); Nitrite,Urine NEG (Negative); Protein,Urine <15 mg/dL mg/dL (Negative); RBC,Urine < 1.0 /HPF (0.0-6.0)
[2017-03-26 23:33] LABS: WBC,Urine < 1.0 /HPF (0.0-6.0)
[2017-03-26 23:45] LABS: Anion Gap 19 mmol/L; BUN/Creatinine Ratio 8; Blood Urea Nitrogen 9 mg/dL (9-20); Carbon Dioxide 25 mmol/L (22-30); Glucose 92 mg/dL (75-100); Potassium 3.8 mmol/L (3.6-5.0); Sodium 142 mmol/L (137-145)
--- NOTE | 2017-03-27 00:09 | Emergency Department Report ---
ED Psych HPI - General Chief Complaint: Psych Stated Complaint: MH Time Seen by Provider: 03/26/17 23:17 Source: patient Mode of arrival: Ambulatory Limitations: Altered Mental Status (INTOXICATED) - History of Present Illness Initial Comments: 41 YO MALE WITH ALCOHOL ABUSE HERE FOR DETOX. HE IS INTOXICATED AND NONCOOPERATIVE WITH THE SECURITY STAFF. HE IS COOPERATIVE WITH THE DOCTOR. MD Complaint: feels depressed History of same: Yes Quality: constant Context: recent alcohol abuse, recent drug abuse Treatments Prior to Arrival: none - Related Data Previous Rx's Medication Instructions Recorded Last Taken Type levETIRAcetam [Keppra TAB] 500 mg PO BID #40 tablet 09/29/16 Unknown Rx hydrOXYzine PAMOATE [Vistaril] 50 mg PO Q6HR PRN #20 capsule 12/09/16 Unknown Rx Allergies Allergy/AdvReac Type Severity Reaction Status Date / Time No Known Allergies Allergy Verified 12/22/14 10:09 ED Review of Systems ROS: Stated complaint: MH Other details as noted in HPI Constitutional: denies: chills, fever Eyes: denies: eye pain, eye discharge, vision change ENT: denies: ear pain, throat pain Respiratory: denies: cough, shortness of breath, wheezing Cardiovascular: denies: chest pain, palpitations Endocrine: no symptoms reported Gastrointestinal: denies: abdominal pain, nausea, diarrhea Genitourinary: denies: urgency, dysuria Musculoskeletal: denies: back pain, joint swelling, arthralgia Skin: denies: rash, lesions Neurological: denies: headache, weakness, paresthesias Psychiatric: denies: anxiety, depression Hematological/Lymphatic: denies: easy bleeding, easy bruising ED Past Medical Hx - Past Medical History Previous Medical History?: Yes Hx Hypertension: Yes Hx Seizures: Yes Hx Psychiatric Treatment: Yes (PANIC ATTACKS/DEPRESSION/ ANXIETY/SCHIZOPHRENIA/ bipolar) - Surgical History Past Surgical History?: Yes Additional Surgical History: TONSILLECTOMY - Social History Smoking Status: Current Every Day Smoker Substance Use Type: Alcohol, Marijuana - Medications Home Medications: Home Medications Medication Instructions Recorded Confirmed Last Taken Type levETIRAcetam [Keppra TAB] 500 mg PO BID #40 tablet 09/29/16 01/14/17 Unknown Rx hydrOXYzine PAMOATE [Vistaril] 50 mg PO Q6HR PRN #20 capsule 12/09/16 01/14/17 Unknown Rx ED Physical Exam - General Limitations: Altered Mental Status (INTOXICATED AND YELLING) General appearance: appears intoxicated - Head Head exam: Present: atraumatic, normocephalic - Eye Eye exam: Present: normal appearance, EOMI - ENT ENT exam: Present: mucous membranes moist - Neck Neck exam: Present: normal inspection, full ROM - Respiratory Respiratory exam: Present: normal lung sounds bilaterally. Absent: respiratory distress, wheezes, rales - Cardiovascular Cardiovascular Exam: Present: regular rate, normal rhythm - GI/Abdominal GI/Abdominal exam: Present: soft - Rectal Rectal exam: Present: deferred - Extremities Exam Extremities exam: Present: full ROM - Back Exam Back exam: Present: full ROM - Neurological Exam Neurological exam: Present: altered - Psychiatric Psychiatric exam: Present: agitated - Skin Skin exam: Present: warm, dry, intact ED Course Vital Signs 03/26/17 21:21 Temperature 98.7 F Pulse Rate 110 H Respiratory 20 Rate Blood Pressure 140/90 [Right] O2 Sat by Pulse 96 Oximetry ED Medical Decision Making - Lab Data Result diagrams: 03/26/17 23:06 03/26/17 23:06 Critical care attestation.: If time is entered above; I have spent that time in minutes in the direct care of this critically ill patient, excluding procedure time. ED Disposition Clinical Impression: Alcohol abuse, Cocaine abuse, Marijuana abuse, Medical clearance for psychiatric admission Disposition: DC/TX-65 PSY HOSP/PSY UNIT Is pt being admited?: Yes Does the pt Need Aspirin: No Condition: Stable Referrals: BABAR ALLEN MD [Primary Care Provider] - 3-5 Days Time of Disposition: 05:27 (PT TP PSYCH FACILITY BUT TO INTOXICATED)
[2017-03-27] MEDS ORDERED: ATIVAN IV ONE (00:11)
[2017-03-28 05:12] VITALS: BP 118/73
--- NOTE | 2017-03-28 10:54 | Consultation ---
History of Present Illness - Reason for Consult Consult date: 03/28/17 Reason for consult: Mental Health Evaluation Requesting physician: LORETO LEW - Chief Complaint Chief complaint: "I started drinking (etoh) again" - History of Present Psychiatric Illness 41 y.o. AA male presenting [facility]. This patient is known to me. Today patient is calm and cooperative during the assessment. He stated that he started back drinking alcohol (etoh) about a week ago after being sober for a "few months." He stated that his "depression" with exacerbated when he started thinking about his life. He rate his depression 5/10, with 10 being the worse. He stated that his life is "hard" and drinking helps him "mellow out." He stated that he started drinking years ago with his last drink 2 days ago. He stated that he ran out of medication (Paxil) 2 weeks ago. He stated that Paxil was effective. The patient would like rehab services once discharged. He denies SI/HI's and AVH's. He denies sleep disturbance and a poor appetite. He denies recreational drug use. Medications and Allergies Allergies Allergy/AdvReac Type Severity Reaction Status Date / Time No Known Allergies Allergy Verified 12/22/14 10:09 Home Medications Medication Instructions Recorded Confirmed Last Taken Type levETIRAcetam [Keppra TAB] 500 mg PO BID #40 tablet 09/29/16 01/14/17 Unknown Rx hydrOXYzine PAMOATE [Vistaril] 50 mg PO Q6HR PRN #20 capsule 12/09/16 01/14/17 Unknown Rx Past psychiatric history - Past Medical History Past Medical History: hypertension Past Surgical History: No surgical history - past Psychiatric treatment and history Psych: Depression psychiatric treatment history: Multiple inpatient/psy services. Denies a fam psy hx. - Social History Social history: lives with family Mental Status Exam - Vital signs Last Vital Signs Temp 97.8 F 03/28/17 05:10 Pulse 70 03/28/17 05:10 Resp 18 03/28/17 05:10 BP 118/73 03/28/17 05:10 Pulse Ox 99 03/28/17 05:10 - Exam Narrative exam: MSE: Appearance: calm, cooperative Behavior: regular eye contact Speech: regular rate and tone Mood: "okay" Affect: congruent to mood Thought Process: linear Thought Content: denies SI/HI's and AVH's Motor Activity: sitting up in bed Cognition: A/O x3 Insight: fair Judgment: fair Results Result Diagrams: 03/26/17 23:06 03/26/17 23:06 All other labs normal. Assessment and Plan Assessment and plan: Impression: Hx of depression. Alcohol Use DO. Today patient is calm and cooperative during the assessment. No withdrawals noted (etoh). Recommendation/Plan: Rescind 1013. Start Paxil 20 mg PO daily for depression. Patient agreed to volunteer for [facility] ([facility]) at [facility] once discharged. Discussed suicidality/medication induced belén with patient reference Paxil. Patient will need prescription for Paxil when discharged.
[2017-03-28] MEDS ORDERED: PAXIL PO SCH (12:00)
== END 2017-03-28 12:58 ==
LOC: ED 21:02 → EEVIPCON 21:02 → ED 03-28 12:58
DX: F10.10 Alcohol abuse, uncomplicated (principal); F14.10 Cocaine abuse, uncomplicated; F12.10 Cannabis abuse, uncomplicated; I10 Essential (primary) hypertension; R56.9 Unspecified convulsions; F20.9 Schizophrenia, unspecified; F31.9 Bipolar disorder, unspecified; F17.200 Nicotine dependence, unspecified, uncomplicated
CPT/HCPCS: 36415; 80048; 80307; 81001; 85025; 96374; 99284; G0480; J2060; 80320

== ENCOUNTER 2017-04-03 22:14 | Emergency (ER) | payer MEDICARE ==
[2017-04-03 23:36] LABS: BUN/Creatinine Ratio 9; Blood Urea Nitrogen 8 mg/dL (9-20); Calcium 9.1 mg/dL (8.4-10.2); Hemolysis Index 10
[2017-04-03 23:40] LABS: Magnesium 2.2 mg/dL (1.7-2.3)
[2017-04-03 23:49] LABS: Bilirubin,Urine NEG (Negative); Blood,Urine SM (Negative); Color,Urine Straw (Yellow); Nitrite,Urine NEG (Negative); Protein,Urine <15 mg/dL mg/dL (Negative); Urobilinogen,Urine < 2.0 mg/dL (<2.0); WBC,Urine < 1.0 /HPF (0.0-6.0)
[2017-04-03 23:57] LABS: Amphetamine Screen,Urine PRESUMPTIVE NEGATIVE; Benzodiazepines Screen,Urine PRESUMPTIVE NEGATIVE; Cannabinoid Screen,Urine PRESUMPTIVE NEGATIVE; Cocaine Screen,Urine PRESUMPTIVE NEGATIVE; Methadone Screen,Urine PRESUMPTIVE NEGATIVE; Opiate Screen,Urine PRESUMPTIVE NEGATIVE
[2017-04-04 00:01] LABS: Basophils # (Auto) 0.1 K/mm3 (0.0-0.1); Basophils % (Auto) 0.6 % (0.0-1.8); Eosinophils # (Auto) 0.1 K/mm3 (0.0-0.4); Eosinophils % (Auto) 0.7 % (0.0-4.3); Hematocrit 48.2 % (35.5-45.6); Hemoglobin 15.9 gm/dl (11.8-15.2); Lymphocytes # (Auto) 2.1 K/mm3 (1.2-5.4); Lymphocytes % (Auto) 20.2 % (13.4-35.0); Mean Corpuscular HGB Conc 33 % (32-34); Mean Corpuscular Hemoglobin 29 pg (28-32); Mean Corpuscular Volume 88 fl (84-94); Monocytes # (Auto) 0.8 K/mm3 (0.0-0.8); Monocytes % (Auto) 7.9 % (0.0-7.3); Platelet Count 489 K/mm3 (140-440); Red Cell Distribution Width 16.9 % (13.2-15.2)
--- NOTE | 2017-04-04 00:55 | Emergency Department Report ---
ED Psych HPI - General Chief Complaint: Psych Stated Complaint: MENTAL HEALTH Time Seen by Provider: 04/03/17 22:44 Source: patient Mode of arrival: Ambulatory - History of Present Illness Initial Comments: 41-year-old male with past medical history hypertension, seizures, panic attacks , schizophrenia, bipolar disorder, and alcohol abuse presents to the hospital with complaints of acute alcohol intoxication. Patient was yelling and cursing in triage. Mother states he's been off his medications and has been drinking excessively. Patient's mood is labile and he varies between anger and crying. He requires seclusion but is cooperative with staff in the ED. Patient is acutely intoxicated. - Related Data Previous Rx's Medication Instructions Recorded Last Taken Type levETIRAcetam [Keppra TAB] 500 mg PO BID #40 tablet 09/29/16 Unknown Rx hydrOXYzine PAMOATE [Vistaril] 50 mg PO Q6HR PRN #20 capsule 12/09/16 Unknown Rx Allergies Allergy/AdvReac Type Severity Reaction Status Date / Time No Known Allergies Allergy Verified 04/03/17 22:21 ED Review of Systems ROS: Stated complaint: MENTAL HEALTH Other details as noted in HPI Comment: Unobtainable due to pts medical conditions ED Past Medical Hx - Past Medical History Hx Hypertension: Yes Hx Seizures: Yes Hx Psychiatric Treatment: Yes (PANIC ATTACKS/DEPRESSION/ ANXIETY/SCHIZOPHRENIA/ bipolar) - Surgical History Additional Surgical History: TONSILLECTOMY - Social History Smoking Status: Current Every Day Smoker Substance Use Type: Alcohol, Cocaine, Marijuana - Medications Home Medications: Home Medications Medication Instructions Recorded Confirmed Last Taken Type levETIRAcetam [Keppra TAB] 500 mg PO BID #40 tablet 09/29/16 04/03/17 Unknown Rx hydrOXYzine PAMOATE [Vistaril] 50 mg PO Q6HR PRN #20 capsule 12/09/16 04/03/17 Unknown Rx ED Physical Exam - General Limitations: No Limitations - Other Other exam information: General: Tearful, labile mode Head exam: Atraumatic, normocephalic Eyes exam: Normal appearance ENT: Moist mucous membrane Neck exam: Normal inspection Respiratory exam: Clear to auscultation bilateral, no wheezes, rales, crackles Cardiovascular: Mild tachycardia, crying Abdomen: Soft, nondistended, and nontender, with normal bowel sounds, no rebound, or guarding Extremity: Full range of motion normal inspection no deformity Back: Normal Inspection, full range of motion, no tenderness Neurologic: Alert, oriented x3, cranial nerves intact, no motor or sensory deficit Psychiatric: Tearful, labile mood Skin: Warm, dry, intact ED Course Vital Signs 04/03/17 04/04/17 04/04/17 23:26 02:14 20:00 Temperature 97.8 F 98.6 F 98.6 F Pulse Rate 102 H 98 H 75 Respiratory 16 18 20 Rate Blood Pressure 160/90 135/68 141/98 [Left] O2 Sat by Pulse 97 98 99 Oximetry 04/04/17 04/05/17 04/05/17 20:26 07:33 09:30 Temperature 98.7 F Pulse Rate 74 Respiratory 18 20 20 Rate Blood Pressure 151/106 [Left] O2 Sat by Pulse 98 97 97 Oximetry - Reevaluation(s) Reevaluation #1: 04/04/17 01:02 1013 signed since pt is acutel intoxicated. - Consultations Consultation #1: 04/04/17 01:03 consult ordered to assess mental status once sober ED Medical Decision Making - Lab Data Result diagrams: 04/03/17 23:08 04/05/17 04:36 Lab Results 04/03/17 04/03/17 04/03/17 Range/Units 23:08 23:08 23:08 WBC 10.4 (4.5-11.0) K/mm3 RBC 5.50 H (3.65-5.03) M/mm3 Hgb 15.9 H (11.8-15.2) gm/dl Hct 48.2 H (35.5-45.6) % MCV 88 (84-94) fl MCH 29 (28-32) pg MCHC 33 (32-34) % RDW 16.9 H (13.2-15.2) % Plt Count 489 H (140-440) K/mm3 Lymph % (Auto) 20.2 (13.4-35.0) % [place] % (Auto) 7.9 H (0.0-7.3) % Eos % (Auto) 0.7 (0.0-4.3) % Baso % (Auto) 0.6 (0.0-1.8) % Lymph # 2.1 (1.2-5.4) K/mm3 [place] # 0.8 (0.0-0.8) K/mm3 Eos # 0.1 (0.0-0.4) K/mm3 Baso # 0.1 (0.0-0.1) K/mm3 Seg Neutrophils % 70.6 H (40.0-70.0) % Seg Neutrophils # 7.3 (1.8-7.7) K/mm3 Sodium 138 (137-145) mmol/L Potassium 3.6 (3.6-5.0) mmol/L Chloride 98.1 (98-107) mmol/L Carbon Dioxide 22 (22-30) mmol/L Anion Gap 22 mmol/L BUN 8 L (9-20) mg/dL Creatinine 0.9 (0.8-1.5) mg/dL Estimated GFR > 60 ml/min BUN/Creatinine Ratio 9 % Glucose 92 (75-100) mg/dL Calcium 9.1 (8.4-10.2) mg/dL Magnesium (1.7-2.3) mg/dL Total Creatine Kinase (55-170) units/L Urine Color (Yellow) Urine Turbidity (Clear) Urine pH (5.0-7.0) Ur Specific [place] (1.003-1.030) Urine Protein (Negative) mg/dL Urine Glucose (UA) (Negative) mg/dL Urine Ketones (Negative) mg/dL Urine Blood (Negative) Urine Nitrite (Negative) Urine Bilirubin (Negative) Urine Urobilinogen (<2.0) mg/dL Ur Leukocyte Esterase (Negative) Urine WBC (Auto) (0.0-6.0) /HPF Urine RBC (Auto) (0.0-6.0) /HPF Urine Opiates Screen Urine Methadone Screen Ur Barbiturates Screen Ur Phencyclidine Scrn Ur Amphetamines Screen U Benzodiazepines Scrn Urine Cocaine Screen U Marijuana (THC) Screen Drugs of Abuse Note Plasma/Serum Alcohol 0.37 H (0-0.07) gm% 04/03/17 04/03/17 04/03/17 Range/Units 23:08 23:25 23:25 WBC (4.5-11.0) K/mm3 RBC (3.65-5.03) M/mm3 Hgb (11.8-15.2) gm/dl Hct (35.5-45.6) % MCV (84-94) fl MCH (28-32) pg MCHC (32-34) % RDW (13.2-15.2) % Plt Count (140-440) K/mm3 Lymph % (Auto) (13.4-35.0) % [place] % (Auto) (0.0-7.3) % Eos % (Auto) (0.0-4.3) % Baso % (Auto) (0.0-1.8) % Lymph # (1.2-5.4) K/mm3 [place] # (0.0-0.8) K/mm3 Eos # (0.0-0.4) K/mm3 Baso # (0.0-0.1) K/mm3 Seg Neutrophils % (40.0-70.0) % Seg Neutrophils # (1.8-7.7) K/mm3 Sodium (137-145) mmol/L Potassium (3.6-5.0) mmol/L Chloride (98-107) mmol/L Carbon Dioxide (22-30) mmol/L Anion Gap mmol/L BUN (9-20) mg/dL Creatinine (0.8-1.5) mg/dL Estimated GFR ml/min BUN/Creatinine Ratio % Glucose (75-100) mg/dL Calcium (8.4-10.2) mg/dL Magnesium 2.20 (1.7-2.3) mg/dL Total Creatine Kinase 567 H (55-170) units/L Urine Color Straw (Yellow) Urine Turbidity Clear (Clear) Urine pH 6.0 (5.0-7.0) Ur Specific [place] 1.002 L (1.003-1.030) Urine Protein <15 mg/dl (Negative) mg/dL Urine Glucose (UA) Neg (Negative) mg/dL Urine Ketones Neg (Negative) mg/dL Urine Blood Sm (Negative) Urine Nitrite Neg (Negative) Urine Bilirubin Neg (Negative) Urine Urobilinogen < 2.0 (<2.0) mg/dL Ur Leukocyte Esterase Neg (Negative) Urine WBC (Auto) < 1.0 (0.0-6.0) /HPF Urine RBC (Auto) 1.0 (0.0-6.0) /HPF Urine Opiates Screen Presumptive negative Urine Methadone Screen Presumptive negative Ur Barbiturates Screen Presumptive negative Ur Phencyclidine Scrn Presumptive negative Ur Amphetamines Screen Presumptive negative U Benzodiazepines Scrn Presumptive negative Urine Cocaine Screen Presumptive negative U Marijuana (THC) Screen Presumptive negative Drugs of Abuse Note Disclamer Plasma/Serum Alcohol (0-0.07) gm% - Medical Decision Making Patient is acutely intoxicated with labile mood in the ED. Mother provides history of medication noncompliance. Patient will need reassessment once his alcohol level decreases and mental health consult ordered and 1013 signed - Differential Diagnosis alcohol intoxication/abuse, psychosis, medication noncompliance Critical Care Time: No Critical care attestation.: If time is entered above; I have spent that time in minutes in the direct care of this critically ill patient, excluding procedure time. ED Disposition Clinical Impression: Alcohol abuse, Alcohol intoxication, Medical clearance for psychiatric admission Disposition: DC/TX-65 PSY HOSP/PSY UNIT Is pt being admited?: No Condition: Stable
[2017-04-05 05:25] LABS: Alanine Aminotransferase 12 units/L (7-56); Albumin 3.6 g/dL (3.9-5); BUN/Creatinine Ratio 11; Blood Urea Nitrogen 9 mg/dL (9-20); Calcium 8.9 mg/dL (8.4-10.2); Hemolysis Index 25
[2017-04-05 09:33] VITALS: BP 151/106
--- NOTE | 2017-04-05 11:47 | Consultation ---
History of Present Illness - Reason for Consult Consult date: 04/05/17 Reason for consult: Mental Health Evaluation Requesting physician: RAMA LIPSCOMB - Chief Complaint Chief complaint: "I need help" - History of Present Psychiatric Illness 42 y.o. AA male presenting to [facility] for intoxication and combative behavior. This patient is known to me. Today patient is cooperative during the assessment. He stated that he ran out of medication (Paxil) and wanted a refill. He stated that he started drinking (etoh) a couple days ago to self medicate to "lower" his depression. He could not confirm or deny being suicidal when asked. He became emotional when asked a second time about wanting to kill himself. He denies HI's and AVH's. He denies recreational drug use. This patient has a long hx of alcoholism. Medications and Allergies Allergies Allergy/AdvReac Type Severity Reaction Status Date / Time No Known Allergies Allergy Verified 04/03/17 22:21 Home Medications Medication Instructions Recorded Confirmed Last Taken Type levETIRAcetam [Keppra TAB] 500 mg PO BID #40 tablet 09/29/16 04/03/17 Unknown Rx hydrOXYzine PAMOATE [Vistaril] 50 mg PO Q6HR PRN #20 capsule 12/09/16 04/03/17 Unknown Rx Past psychiatric history - Past Medical History Past Medical History: hypertension Past Surgical History: No surgical history - past Psychiatric treatment and history Psych: Depression psychiatric treatment history: Multiple inpatient psy settings. Denies a fam psy hx. - Social History Social history: lives with family Mental Status Exam - Vital signs Last Vital Signs Temp 98.7 F 04/05/17 09:30 Pulse 74 04/05/17 09:30 Resp 20 04/05/17 09:30 BP 151/106 04/05/17 09:30 Pulse Ox 97 04/05/17 09:30 - Exam Narrative exam: MSE: Appearance: emotional, cooperative Behavior: good eye contact Speech: regular rate and tone Mood: "okay" sad Affect: congruent to mood Thought Process: circumstantial Thought Content: denies HI's and AVH's Motor Activity: sitting up in chair Cognition: A/O x3 Insight: variable Judgment: variable Results Result Diagrams: 04/03/17 23:08 04/05/17 04:36 Abnormal lab results 04/05/17 Range/Units 04:36 Sodium 134 L (137-145) mmol/L Chloride 95.1 L (98-107) mmol/L Glucose 113 H (75-100) mg/dL Albumin 3.6 L (3.9-5) g/dL All other labs normal. Assessment and Plan Assessment and plan: Impression: Hx of Depression. Alcohol Use DO. Today patient is cooperative during the assessment. DDx: R/O Bipolar DO, R/O Alcohol Induced Mood DO Recommendation/Plan: Continue 1013 with placement to [facility] today. Discussed the importance to abstain from alcohol consumption with patient.
== END 2017-04-05 09:37 ==
LOC: ED 22:14 → EEVIPCON 22:14 → ED 04-05 09:37
DX: F10.129 Alcohol abuse with intoxication, unspecified (principal); I10 Essential (primary) hypertension; R56.9 Unspecified convulsions; F12.10 Cannabis abuse, uncomplicated; F14.10 Cocaine abuse, uncomplicated; F17.200 Nicotine dependence, unspecified, uncomplicated
CPT/HCPCS: 36415; 80048; 80053; 80307; 81001; 82550; 83735; 85025; 99285; G0480; 80320

== ENCOUNTER 2017-04-13 21:48 | Emergency (ER) | payer MEDICARE | END 2017-04-13 22:00 | disposition left against medical advice (07) | LOC: ED 21:48 | DX: Z53.21 Procedure and treatment not carried out due to patient leaving prior to being seen by health care provider (principal) ==

== ENCOUNTER 2017-04-14 07:56 | Emergency (ER) | payer MEDICARE ==
[2017-04-14 08:59] LABS: Basophils # (Auto) 0.1 K/mm3 (0.0-0.1); Basophils % (Auto) 0.8 % (0.0-1.8); Eosinophils # (Auto) 0.2 K/mm3 (0.0-0.4); Hemoglobin 16.1 gm/dl (11.8-15.2); Lymphocytes # (Auto) 1.8 K/mm3 (1.2-5.4); Lymphocytes % (Auto) 24.6 % (13.4-35.0); Mean Corpuscular HGB Conc 33 % (32-34); Mean Corpuscular Hemoglobin 29 pg (28-32); Mean Corpuscular Volume 87 fl (84-94); Monocytes # (Auto) 1.1 K/mm3 (0.0-0.8); Monocytes % (Auto) 14.7 % (0.0-7.3); Platelet Count 343 K/mm3 (140-440); Red Blood Count 5.61 M/mm3 (3.65-5.03)
[2017-04-14 09:24] LABS: BUN/Creatinine Ratio 21; Blood Urea Nitrogen 17 mg/dL (9-20); Calcium 9.8 mg/dL (8.4-10.2); Hemolysis Index 44
[2017-04-14 11:41] LABS: Bilirubin,Urine NEG (Negative); Blood,Urine NEG (Negative); Color,Urine Yellow (Yellow); Nitrite,Urine NEG (Negative)
[2017-04-14 11:54] LABS: Amphetamine Screen,Urine PRESUMPTIVE NEGATIVE; Methadone Screen,Urine PRESUMPTIVE NEGATIVE; Opiate Screen,Urine PRESUMPTIVE NEGATIVE
[2017-04-14 12:15] LABS: Benzodiazepines Screen,Urine PRESUMPTIVE POSITIVE; Cannabinoid Screen,Urine PRESUMPTIVE POSITIVE; Cocaine Screen,Urine PRESUMPTIVE POSITIVE
--- NOTE | 2017-04-14 16:54 | Emergency Department Report ---
ED General Adult HPI - General Chief complaint: Alcohol Stated complaint: BEHAVIOR Time Seen by Provider: 04/14/17 16:38 Source: patient Mode of arrival: Ambulatory Limitations: No Limitations - History of Present Illness Initial comments: 42 yo male who was brought in via the police due to possible etoh intoxication. The patient was seen and evaluated here in the ED today, and left the ED. Urine drug screen positive for cocaine, benzodiazepines, and marijuana. Etoh unremarkable. The patient denies any suicidal/homicidal ideation. The patient is requesting to go home, and denies any current concerns. -: This evening Treatments Prior to Arrival: none - Related Data Previous Rx's Medication Instructions Recorded Last Taken Type levETIRAcetam [Keppra TAB] 500 mg PO BID #40 tablet 09/29/16 Unknown Rx hydrOXYzine PAMOATE [Vistaril] 50 mg PO Q6HR PRN #20 capsule 12/09/16 Unknown Rx Allergies Allergy/AdvReac Type Severity Reaction Status Date / Time No Known Allergies Allergy Verified 04/03/17 22:21 ED Review of Systems ROS: Stated complaint: BEHAVIOR Other details as noted in HPI Comment: Unobtainable due to pts medical conditions (cocaine, benzodiazepine, and marijuana intoxication) Constitutional: denies: chills, fever Eyes: denies: eye pain, eye discharge, vision change ENT: denies: ear pain, throat pain Respiratory: denies: cough, shortness of breath, wheezing Cardiovascular: denies: chest pain, palpitations Endocrine: no symptoms reported Gastrointestinal: denies: abdominal pain, nausea, diarrhea Genitourinary: denies: urgency, dysuria Musculoskeletal: denies: back pain, joint swelling, arthralgia Skin: denies: rash, lesions Neurological: denies: headache, weakness, paresthesias Psychiatric: other (drug intoxication ) Hematological/Lymphatic: denies: easy bleeding, easy bruising ED Past Medical Hx - Past Medical History Previous Medical History?: Yes Hx Hypertension: Yes Hx Seizures: Yes Hx Psychiatric Treatment: Yes (PANIC ATTACKS/DEPRESSION/ ANXIETY/SCHIZOPHRENIA/ bipolar. ETOH abuse) - Surgical History Past Surgical History?: Yes Additional Surgical History: TONSILLECTOMY - Social History Smoking Status: Current Every Day Smoker Substance Use Type: Alcohol, Marijuana - Medications Home Medications: Home Medications Medication Instructions Recorded Confirmed Last Taken Type levETIRAcetam [Keppra TAB] 500 mg PO BID #40 tablet 09/29/16 04/14/17 Unknown Rx hydrOXYzine PAMOATE [Vistaril] 50 mg PO Q6HR PRN #20 capsule 12/09/16 04/14/17 Unknown Rx ED Physical Exam - General Limitations: No Limitations General appearance: appears intoxicated - Head Head exam: Present: atraumatic, normocephalic - Eye Eye exam: Present: normal appearance - ENT ENT exam: Present: mucous membranes moist - Neck Neck exam: Present: normal inspection - Respiratory Respiratory exam: Present: normal lung sounds bilaterally. Absent: respiratory distress - Cardiovascular Cardiovascular Exam: Present: regular rate, normal rhythm. Absent: systolic murmur, diastolic murmur, rubs, gallop - Extremities Exam Extremities exam: Present: normal inspection - Back Exam Back exam: Present: normal inspection - Neurological Exam Neurological exam: Present: other (drug intoxication ) - Psychiatric Psychiatric exam: Present: other (drug intoxication ) - Skin Skin exam: Present: warm, dry, intact, normal color. Absent: rash ED Course Vital Signs 04/14/17 04/14/17 08:00 20:03 Temperature 98.3 F 98.8 F Pulse Rate 93 H 88 Respiratory 18 18 Rate Blood Pressure 134/101 Blood Pressure 110/72 [Left] O2 Sat by Pulse 96 97 Oximetry - Reevaluation(s) Reevaluation #1: 04/14/17 16:59 Mental health to evaluate the patient. Awaiting evaluation. Reevaluation #2: 04/14/17 17:30 Mental health evaluated the patient. Mental health states that the patient isn' t a threat to himself or others. Evaluation reveals drug intoxication. Home after the patient sleeps off the medications. ED Medical Decision Making - Lab Data Result diagrams: 04/14/17 08:30 04/14/17 08:30 - Medical Decision Making Mental health evaluation states that the patient isn't a threat to himself or others. Plan to let the patient sleep off medications and discharge in the am if stable. Cocaine abuse Marijuana abuse Benzodiazepine abuse - Differential Diagnosis Polysubstance abuse Critical care attestation.: If time is entered above; I have spent that time in minutes in the direct care of this critically ill patient, excluding procedure time. ED Disposition Clinical Impression: Polysubstance abuse Disposition: DC-01 TO HOME OR SELFCARE Is pt being admited?: No Does the pt Need Aspirin: No Condition: Stable Instructions: Polysubstance Abuse (ED) Additional Instructions: Please stop using recreational drugs. Establish with a provider on discharge. Establish with mental health on discharge as well. Return to the ED if you feel like you want to hurt yourself or anyone else. Referrals: PRIMARY CARE, [Primary Care Provider] - 3-5 Days Time of Disposition: 01:58
[2017-04-14 22:28] VITALS: BP 110/72
--- NOTE | 2017-04-15 11:01 | Consultation ---
History of Present Illness - Reason for Consult Consult date: 04/15/17 Reason for consult: Mental Health Evaluation Requesting physician: RAJANI DEWITT - Chief Complaint Chief complaint: "I want to stop drinking" - History of Present Psychiatric Illness 42 yo male who was brought in via the police due to possible etoh intoxication. This patient is known to me. Today patient the patient is calm and cooperative during the assessment. He stated that he decided to "drink alcohol (etoh) and get high" prior to his admission to [facility]. He stated that he was released from [facility] a couple days ago, met up with some friends, and made a poor choice to use substances. He stated that he want to stop drinking, because it had consumed a lot of his adult life. He stated that he usually don't use recreational drugs, but he was positive for cocaine and marijuana. He denies SI/ HI's and AVH's. He denies being depressed or manic. He denies sleep disturbance and a poor appetite. Medications and Allergies Allergies Allergy/AdvReac Type Severity Reaction Status Date / Time No Known Allergies Allergy Verified 04/03/17 22:21 Home Medications Medication Instructions Recorded Confirmed Last Taken Type levETIRAcetam [Keppra TAB] 500 mg PO BID #40 tablet 09/29/16 04/14/17 Unknown Rx hydrOXYzine PAMOATE [Vistaril] 50 mg PO Q6HR PRN #20 capsule 12/09/16 04/14/17 Unknown Rx Past psychiatric history - Past Medical History Past Medical History: seizures Past Surgical History: No surgical history - past Psychiatric treatment and history psychiatric treatment history: Multiple inpatient setting for psy and rehab services. Denies a fam psy hx. - Social History Social history: lives with family Mental Status Exam - Vital signs Last Vital Signs Temp 98.8 F 04/14/17 20:03 Pulse 88 04/14/17 20:03 Resp 18 04/14/17 20:03 BP 110/72 04/14/17 20:03 Pulse Ox 97 04/14/17 20:03 - Exam Narrative exam: MSE: Appearance: calm, cooperative Behavior: good eye contact Speech: regular rate and tone Mood: "okay" Affect: congruent to mood Thought Process: logical Thought Content: denies SI/HI's and AVH's Motor Activity: ambulatory Cognition: A/O x 3 Insight: fair Judgment: fair Results Result Diagrams: 04/14/17 08:30 04/14/17 08:30 All other labs normal. Assessment and Plan Assessment and plan: Impression: Hx of Alcohol Use DO. Today patient the patient is calm and cooperative during the assessment. No acute withdrawals (etoh) noted. DDx: R/O Mood DO, Substance Use DO Recommendation/Plan: Patient given outpatient rehab services for [facility] and [facility].
== END 2017-04-15 09:00 | disposition home or self-care (01) ==
LOC: EEVIPCON 07:56 → ED 07:56
DX: F14.10 Cocaine abuse, uncomplicated (principal); F12.10 Cannabis abuse, uncomplicated; F13.10 Sedative, hypnotic or anxiolytic abuse, uncomplicated; I10 Essential (primary) hypertension; F31.9 Bipolar disorder, unspecified; F20.9 Schizophrenia, unspecified; F41.9 Anxiety disorder, unspecified; F17.200 Nicotine dependence, unspecified, uncomplicated; Z79.899 Other long term (current) drug therapy; Z90.89 Acquired absence of other organs
CPT/HCPCS: 36415; 80048; 80307; 81001; 85025; 99284; G0480; 80320

== ENCOUNTER 2017-07-24 14:38 | Emergency (ER) | payer MEDICARE ==
[2017-07-24 14:52] VITALS: BP 122/84
[2017-07-24 15:22] LABS: Basophils % (Auto) 0.3 % (0.0-1.8); Eosinophils # (Auto) 0.1 K/mm3 (0.0-0.4); Eosinophils % (Auto) 1.8 % (0.0-4.3); Hematocrit 41.7 % (35.5-45.6); Hemoglobin 14.4 gm/dl (11.8-15.2); Lymphocytes # (Auto) 1.3 K/mm3 (1.2-5.4); Lymphocytes % (Auto) 19.3 % (13.4-35.0); Mean Corpuscular HGB Conc 34 % (32-34); Mean Corpuscular Hemoglobin 30 pg (28-32); Mean Corpuscular Volume 87 fl (84-94); Monocytes # (Auto) 0.9 K/mm3 (0.0-0.8); Monocytes % (Auto) 12.6 % (0.0-7.3); Platelet Count 279 K/mm3 (140-440); Red Blood Count 4.81 M/mm3 (3.65-5.03)
--- NOTE | 2017-07-24 15:27 | XRay Report ---
FINAL REPORT EXAM: XR CHEST ROUTINE 2V HISTORY: Shortness of breath TECHNIQUE: A single view of the chest was submitted. FINDINGS: The lungs are clear. The heart size is normal. Pleural fluid is not seen. The lungs are not congested. The skeletal structures are well-maintained. IMPRESSION: Normal chest.
[2017-07-24 15:38] LABS: BUN/Creatinine Ratio 11; Blood Urea Nitrogen 8 mg/dL (9-20); Calcium 8.9 mg/dL (8.4-10.2); Hemolysis Index 6
== END 2017-07-24 15:04 | disposition left against medical advice (07) ==
LOC: ED 14:38
DX: R22.2 Localized swelling, mass and lump, trunk (principal); Z53.21 Procedure and treatment not carried out due to patient leaving prior to being seen by health care provider
CPT/HCPCS: 36415; 71046; 80048; 85025; 93005; 93010

== ENCOUNTER 2017-09-27 19:56 | Emergency (ER) | payer MEDICARE ==
[2017-09-27] MEDS ORDERED: NORVASC PO ONE (20:56)
[2017-09-27] MEDS ORDERED: ATIVAN PO PRN ×2 (20:58)
--- NOTE | 2017-09-27 21:02 | Emergency Department Report ---
ED Alcohol HPI - General Chief Complaint: Medical Clearance Stated Complaint: MEDICAL CLEARANCE Time Seen by Provider: 09/27/17 20:43 Source: patient Mode of arrival: Stretcher Limitations: No Limitations - History of Present Illness Initial Comments: 42-year-old male with a past medical history hypertension, schizophrenia, panic attacks, bipolar disorder, alcohol abuse, and seizures presents to Hospital at complains of eating medical clearance to be admitted [facility] for alcohol detox. Patient drinks a half a gallon of vodka over 2-3 day. Last drink was this a.m. Patient does have a history of alcohol withdrawal tremors but denies tremors at this time. Patient presents with elevated blood pressure and states he's been compliant with his HCTZ 12.5mg with last dose this am. No physical complaints reported at this time. - Related Data Home Medications Medication Instructions Recorded Confirmed Last Taken Hydrochlorothiazide [Hctz] 12.5 mg PO QDAY 09/27/17 09/27/17 Unknown PARoxetine [Paxil] 40 mg PO DAILY 09/27/17 09/27/17 09/27/17 QUEtiapine [SEROquel] 400 mg PO QHS 09/27/17 09/27/17 Unknown Allergies Allergy/AdvReac Type Severity Reaction Status Date / Time No Known Allergies Allergy Verified 04/03/17 22:21 ED Review of Systems ROS: Stated complaint: MEDICAL CLEARANCE Other details as noted in HPI Comment: All other systems reviewed and negative ED Past Medical Hx - Past Medical History Hx Hypertension: Yes Hx Seizures: Yes Hx Psychiatric Treatment: Yes (PANIC ATTACKS/DEPRESSION/ ANXIETY/SCHIZOPHRENIA/ bipolar. ETOH abuse) - Surgical History Additional Surgical History: TONSILLECTOMY - Social History Smoking Status: Current Every Day Smoker Substance Use Type: Alcohol - Medications Home Medications: Home Medications Medication Instructions Recorded Confirmed Last Taken Type Hydrochlorothiazide [Hctz] 12.5 mg PO QDAY 09/27/17 09/27/17 Unknown History PARoxetine [Paxil] 40 mg PO DAILY 09/27/17 09/27/17 09/27/17 History QUEtiapine [SEROquel] 400 mg PO QHS 09/27/17 09/27/17 Unknown History ED Physical Exam - General Limitations: No Limitations - Other Other exam information: General: No limitations, patient is alert in no acute distress Head exam: Atraumatic, normocephalic Eyes exam: Normal appearance, nonicteric sclerae ENT: Moist mucous membrane, normal oropharynx Neck exam: Normal inspection, full range of motion, no meningismus nontender Respiratory exam: Clear to auscultation bilateral, no wheezes, rales, crackles Cardiovascular: Normal rate and rhythm, normal heart sounds Abdomen: Soft, nondistended, and nontender, with normal bowel sounds, no rebound, or guarding Extremity: Full range of motion normal inspection no deformity Back: Normal Inspection, full range of motion, no tenderness Neurologic: Alert, oriented x3, cranial nerves intact, no motor or sensory deficit. No tremor Psychiatric: normal affect, normal mood Skin: Warm, dry, intact ED Course Vital Signs 09/27/17 09/27/17 09/27/17 20:04 20:15 20:16 Temperature 98.7 F Pulse Rate 73 Respiratory 16 Rate Blood Pressure 147/105 147/105 Blood Pressure [Right] O2 Sat by Pulse 97 98 95 Oximetry 09/27/17 09/27/17 09/27/17 20:30 20:43 20:45 Temperature Pulse Rate Respiratory 20 Rate Blood Pressure 134/96 144/101 Blood Pressure [Right] O2 Sat by Pulse 96 97 Oximetry 09/27/17 09/27/17 09/27/17 20:52 21:00 21:15 Temperature Pulse Rate Respiratory Rate Blood Pressure 144/101 153/114 144/95 Blood Pressure [Right] O2 Sat by Pulse 98 97 97 Oximetry 09/27/17 09/27/17 09/27/17 21:30 21:46 21:51 Temperature Pulse Rate Respiratory Rate Blood Pressure 144/95 131/88 Blood Pressure [Right] O2 Sat by Pulse 96 91 96 Oximetry 09/27/17 09/27/17 09/27/17 22:00 22:05 22:15 Temperature 98.2 F Pulse Rate 78 Respiratory 18 Rate Blood Pressure 144/101 155/115 Blood Pressure 103/71 [Right] O2 Sat by Pulse 97 100 97 Oximetry 09/27/17 09/27/17 09/27/17 22:30 22:45 23:00 Temperature Pulse Rate Respiratory Rate Blood Pressure 157/109 144/98 147/98 Blood Pressure [Right] O2 Sat by Pulse 95 93 94 Oximetry 09/27/17 09/27/17 09/27/17 23:15 23:30 23:45 Temperature Pulse Rate Respiratory Rate Blood Pressure 149/101 140/97 150/106 Blood Pressure [Right] O2 Sat by Pulse 95 94 95 Oximetry 09/28/17 09/28/17 09/28/17 00:00 00:15 00:30 Temperature 97.2 F L Pulse Rate Respiratory Rate Blood Pressure 132/94 132/90 122/80 Blood Pressure [Right] O2 Sat by Pulse 95 96 95 Oximetry 09/28/17 09/28/17 09/28/17 00:45 01:00 01:15 Temperature Pulse Rate Respiratory Rate Blood Pressure 116/73 115/72 119/73 Blood Pressure [Right] O2 Sat by Pulse 95 94 95 Oximetry 09/28/17 09/28/17 09/28/17 01:30 01:45 02:00 Temperature 97.5 F L Pulse Rate Respiratory Rate Blood Pressure 119/73 132/95 132/95 Blood Pressure [Right] O2 Sat by Pulse 98 97 Oximetry 09/28/17 02:16 Temperature Pulse Rate Respiratory Rate Blood Pressure 142/94 Blood Pressure [Right] O2 Sat by Pulse 97 Oximetry ED Medical Decision Making - Lab Data Result diagrams: 09/27/17 21:35 09/27/17 21:35 Lab Results 09/27/17 09/27/17 09/27/17 Range/Units 21:35 21:35 21:35 WBC 6.7 (4.5-11.0) K/mm3 RBC 4.87 (3.65-5.03) M/mm3 Hgb 14.7 (11.8-15.2) gm/dl Hct 43.9 (35.5-45.6) % MCV 90 (84-94) fl MCH 30 (28-32) pg MCHC 34 (32-34) % RDW 15.2 (13.2-15.2) % Plt Count 333 (140-440) K/mm3 Lymph % (Auto) 27.9 (13.4-35.0) % [place] % (Auto) 11.5 H (0.0-7.3) % Eos % (Auto) 1.7 (0.0-4.3) % Baso % (Auto) 1.4 (0.0-1.8) % Lymph # 1.9 (1.2-5.4) K/mm3 [place] # 0.8 (0.0-0.8) K/mm3 Eos # 0.1 (0.0-0.4) K/mm3 Baso # 0.1 (0.0-0.1) K/mm3 Seg Neutrophils % 57.5 (40.0-70.0) % Seg Neutrophils # 3.8 (1.8-7.7) K/mm3 Sodium 140 (137-145) mmol/L Potassium 3.9 (3.6-5.0) mmol/L Chloride 101.0 (98-107) mmol/L Carbon Dioxide 23 (22-30) mmol/L Anion Gap 20 mmol/L BUN 13 (9-20) mg/dL Creatinine 0.8 (0.8-1.5) mg/dL Estimated GFR > 60 ml/min BUN/Creatinine Ratio 16 % Glucose 72 L (75-100) mg/dL Calcium 9.1 (8.4-10.2) mg/dL Magnesium 2.10 (1.7-2.3) mg/dL Total Bilirubin 0.40 (0.1-1.2) mg/dL AST 32 (5-40) units/L ALT 21 (7-56) units/L Alkaline Phosphatase 98 (35-129) units/L Total Protein 8.1 (6.3-8.2) g/dL Albumin 4.2 (3.9-5) g/dL Albumin/Globulin Ratio 1.1 % Urine Color (Yellow) Urine Turbidity (Clear) Urine pH (5.0-7.0) Ur Specific [place] (1.003-1.030) Urine Protein (Negative) mg/dL Urine Glucose (UA) (Negative) mg/dL Urine Ketones (Negative) mg/dL Urine Blood (Negative) Urine Nitrite (Negative) Urine Bilirubin (Negative) Urine Urobilinogen (<2.0) mg/dL Ur Leukocyte Esterase (Negative) Urine WBC (Auto) (0.0-6.0) /HPF Urine RBC (Auto) (0.0-6.0) /HPF Urine Opiates Screen Urine Methadone Screen Ur Barbiturates Screen Ur Phencyclidine Scrn Ur Amphetamines Screen U Benzodiazepines Scrn Urine Cocaine Screen U Marijuana (THC) Screen Drugs of Abuse Note Plasma/Serum Alcohol 0.11 H (0-0.07) % 09/27/17 09/27/17 Range/Units 22:33 22:33 WBC (4.5-11.0) K/mm3 RBC (3.65-5.03) M/mm3 Hgb (11.8-15.2) gm/dl Hct (35.5-45.6) % MCV (84-94) fl MCH (28-32) pg MCHC (32-34) % RDW (13.2-15.2) % Plt Count (140-440) K/mm3 Lymph % (Auto) (13.4-35.0) % [place] % (Auto) (0.0-7.3) % Eos % (Auto) (0.0-4.3) % Baso % (Auto) (0.0-1.8) % Lymph # (1.2-5.4) K/mm3 [place] # (0.0-0.8) K/mm3 Eos # (0.0-0.4) K/mm3 Baso # (0.0-0.1) K/mm3 Seg Neutrophils % (40.0-70.0) % Seg Neutrophils # (1.8-7.7) K/mm3 Sodium (137-145) mmol/L Potassium (3.6-5.0) mmol/L Chloride (98-107) mmol/L Carbon Dioxide (22-30) mmol/L Anion Gap mmol/L BUN (9-20) mg/dL Creatinine (0.8-1.5) mg/dL Estimated GFR ml/min BUN/Creatinine Ratio % Glucose (75-100) mg/dL Calcium (8.4-10.2) mg/dL Magnesium (1.7-2.3) mg/dL Total Bilirubin (0.1-1.2) mg/dL AST (5-40) units/L ALT (7-56) units/L Alkaline Phosphatase (35-129) units/L Total Protein (6.3-8.2) g/dL Albumin (3.9-5) g/dL Albumin/Globulin Ratio % Urine Color Yellow (Yellow) Urine Turbidity Clear (Clear) Urine pH 5.0 (5.0-7.0) Ur Specific [place] 1.018 (1.003-1.030) Urine Protein <15 mg/dl (Negative) mg/dL Urine Glucose (UA) Neg (Negative) mg/dL Urine Ketones Tr (Negative) mg/dL Urine Blood Neg (Negative) Urine Nitrite Neg (Negative) Urine Bilirubin Neg (Negative) Urine Urobilinogen 2.0 (<2.0) mg/dL Ur Leukocyte Esterase Neg (Negative) Urine WBC (Auto) < 1.0 (0.0-6.0) /HPF Urine RBC (Auto) 2.0 (0.0-6.0) /HPF Urine Opiates Screen Presumptive negative Urine Methadone Screen Presumptive negative Ur Barbiturates Screen Presumptive negative Ur Phencyclidine Scrn Presumptive negative Ur Amphetamines Screen Presumptive negative U Benzodiazepines Scrn Presumptive negative Urine Cocaine Screen Presumptive positive U Marijuana (THC) Screen Presumptive positive Drugs of Abuse Note Disclamer Plasma/Serum Alcohol (0-0.07) % - Differential Diagnosis alcohol abuse, drug abuse, electrolyte abnormality Critical Care Time: No Critical care attestation.: If time is entered above; I have spent that time in minutes in the direct care of this critically ill patient, excluding procedure time. ED Disposition Clinical Impression: Alcohol abuse, Cocaine abuse, Marijuana abuse, Medical clearance for psychiatric admission Disposition: DC/TX-65 PSY HOSP/PSY UNIT Is pt being admited?: No Condition: Stable Time of Disposition: 01:59 (awaitng acceptance)
[2017-09-27 21:56] LABS: Basophils # (Auto) 0.1 K/mm3 (0.0-0.1); Basophils % (Auto) 1.4 % (0.0-1.8); Eosinophils # (Auto) 0.1 K/mm3 (0.0-0.4); Eosinophils % (Auto) 1.7 % (0.0-4.3); Hematocrit 43.9 % (35.5-45.6); Hemoglobin 14.7 gm/dl (11.8-15.2); Lymphocytes # (Auto) 1.9 K/mm3 (1.2-5.4); Lymphocytes % (Auto) 27.9 % (13.4-35.0); Mean Corpuscular HGB Conc 34 % (32-34); Mean Corpuscular Hemoglobin 30 pg (28-32); Mean Corpuscular Volume 90 fl (84-94); Monocytes # (Auto) 0.8 K/mm3 (0.0-0.8); Monocytes % (Auto) 11.5 % (0.0-7.3); Platelet Count 333 K/mm3 (140-440); Red Blood Count 4.87 M/mm3 (3.65-5.03); Red Cell Distribution Width 15.2 % (13.2-15.2)
[2017-09-27 22:14] LABS: Alanine Aminotransferase 21 units/L (7-56); Albumin 4.2 g/dL (3.9-5); BUN/Creatinine Ratio 16; Blood Urea Nitrogen 13 mg/dL (9-20); Calcium 9.1 mg/dL (8.4-10.2); Hemolysis Index 11
[2017-09-27 23:19] LABS: Bilirubin,Urine NEG (Negative); Blood,Urine NEG (Negative); Color,Urine Yellow (Yellow); Protein,Urine <15 mg/dL mg/dL (Negative)
[2017-09-27 23:20] LABS: WBC,Urine < 1.0 /HPF (0.0-6.0)
[2017-09-27 23:29] LABS: Amphetamine Screen,Urine PRESUMPTIVE NEGATIVE; Benzodiazepines Screen,Urine PRESUMPTIVE NEGATIVE; Methadone Screen,Urine PRESUMPTIVE NEGATIVE; Opiate Screen,Urine PRESUMPTIVE NEGATIVE
[2017-09-28 00:21] LABS: Cannabinoid Screen,Urine PRESUMPTIVE POSITIVE; Cocaine Screen,Urine PRESUMPTIVE POSITIVE
[2017-09-28 04:58] VITALS: BP 143/108
== END 2017-09-28 04:59 ==
LOC: ED 19:56
DX: F10.10 Alcohol abuse, uncomplicated (principal); F14.10 Cocaine abuse, uncomplicated; F12.10 Cannabis abuse, uncomplicated; I10 Essential (primary) hypertension; F17.200 Nicotine dependence, unspecified, uncomplicated
CPT/HCPCS: 36415; 80053; 80307; 81001; 83735; 85025; 99285; G0480; 80320

== ENCOUNTER 2017-10-03 00:39 | Emergency (ER) | payer MEDICARE ==
[2017-10-03 01:03] VITALS: BP 120/78
[2017-10-03 01:45] LABS: Bilirubin,Urine NEG (Negative); Blood,Urine NEG (Negative); Color,Urine Yellow (Yellow); Mucus,Urine FEW /HPF; Protein,Urine <15 mg/dL mg/dL (Negative); Urobilinogen,Urine < 2.0 mg/dL (<2.0)
[2017-10-03 01:52] LABS: Amphetamine Screen,Urine PRESUMPTIVE NEGATIVE; Benzodiazepines Screen,Urine PRESUMPTIVE NEGATIVE; Cannabinoid Screen,Urine PRESUMPTIVE NEGATIVE; Cocaine Screen,Urine PRESUMPTIVE NEGATIVE; Methadone Screen,Urine PRESUMPTIVE NEGATIVE; Opiate Screen,Urine PRESUMPTIVE NEGATIVE
--- NOTE | 2017-10-03 02:17 | Emergency Department Report ---
<MAINE SANCHEZ - Last Filed: 10/03/17 03:41> ED Medical Clearance HPI - General Chief complaint: Medical Clearance Stated complaint: MEDICAL CLEARANCE Time Seen by Provider: 10/03/17 03:16 Source: patient Mode of arrival: Ambulatory Limitations: No Limitations - History of Present Illness Initial comments: Patient here reports that he is here to be cleared to go back to the [facility] for all call rehabilitation. He said that he wasn't a large to get help for all call his them and he relapsed in left yesterday and had some all call. He said the last major alcohol was yesterday and he usually drinks up a pint of liquor a day. He does not seem to be intoxicated nor does he smell like alcohol. Patient said he made a mistake and he just needs some help and is trying to get back into the large. He denies any pain, fever or chills. Denies any nausea or vomiting. Denies any urinary burning frequency or urgency. Patient says that he is having in some indigestion which he usually have and he usually take some Tums and it goes away and he said he was having some earlier but it's all gone now. Denies any history of heart problem. He has a history of panic attack, depression, anxiety, schizophrenia and bipolar disorder, hypertension and EtOH abuse. Complaint: medical clearance request -: This afternoon (complaining of indigestion this afternoon but he said it's gone now) Reason for Medical Clearance: other (to get back into alcohol rehabilitation treatment) Place: street [facility] Intoxication: No Compliant with Home Medications: Yes Traumatic Symptoms: denies traumatic injury Associated Symptoms: other (indigestion earlier but cleared.). denies: chest pain, shortness of breath, palpitations, diaphoresis, denies other symptoms, confusion, cough, fever/chills, headaches, anorexia, malaise, nausea/vomiting, rash, seizure, syncope, weakness Treatments Prior to Arrival: none Home medications: Home Medications Medication Instructions Recorded Confirmed Last Taken Hydrochlorothiazide [Hctz] 12.5 mg PO QDAY 09/27/17 09/27/17 Unknown PARoxetine [Paxil] 40 mg PO DAILY 09/27/17 09/27/17 09/27/17 QUEtiapine [SEROquel] 400 mg PO QHS 09/27/17 09/27/17 Unknown Allergies/Adverse reactions: Allergies Allergy/AdvReac Type Severity Reaction Status Date / Time No Known Allergies Allergy Verified 10/03/17 00:58 ED Review of Systems ROS: Stated complaint: MEDICAL CLEARANCE Other details as noted in HPI Constitutional: denies: chills, fever Eyes: denies: eye discharge, vision change ENT: denies: ear pain, throat pain, epistaxis, congestion Respiratory: denies: cough, shortness of breath, SOB with exertion, SOB at rest , stridor, wheezing Cardiovascular: denies: chest pain, palpitations, dyspnea on exertion, edema, syncope Gastrointestinal: other (port that he has indigestion from time to time but he has none now. He said he was experiencing some this afternoon but its gone.). denies: abdominal pain, nausea, vomiting, diarrhea, constipation, hematemesis, melena Genitourinary: denies: urgency, dysuria, frequency, hematuria, discharge, testicular pain, testicular mass Musculoskeletal: denies: back pain, joint swelling, arthralgia, myalgia Skin: denies: rash, lesions Neurological: denies: headache, weakness, numbness, paresthesias, confusion, abnormal gait, vertigo Psychiatric: denies: anxiety, depression, auditory hallucinations, visual hallucinations, homicidal thoughts, suicidal thoughts Hematological/Lymphatic: denies: easy bleeding, easy bruising ED Past Medical Hx - Past Medical History Previous Medical History?: Yes Hx Hypertension: Yes Hx Seizures: No Hx Psychiatric Treatment: Yes (PANIC ATTACKS/DEPRESSION/ ANXIETY/SCHIZOPHRENIA/ bipolar. ETOH abuse) - Surgical History Past Surgical History?: Yes Additional Surgical History: TONSILLECTOMY - Family History Family history: hypertension - Social History Smoking Status: Current Every Day Smoker Substance Use Type: Alcohol - Medications Home Medications: Home Medications Medication Instructions Recorded Confirmed Last Taken Type Hydrochlorothiazide [Hctz] 12.5 mg PO QDAY 09/27/17 09/27/17 Unknown History PARoxetine [Paxil] 40 mg PO DAILY 09/27/17 09/27/17 09/27/17 History QUEtiapine [SEROquel] 400 mg PO QHS 09/27/17 09/27/17 Unknown History ED Physical Exam - General Limitations: No Limitations General appearance: alert, in no apparent distress - Head Head exam: Present: atraumatic, normocephalic, normal inspection, other (normal exam) - Eye Eye exam: Present: normal appearance, PERRL, EOMI Pupils: Present: normal accommodation - ENT ENT exam: Present: normal exam, normal orophraynx, mucous membranes moist, TM's normal bilaterally, normal external ear exam - Neck Neck exam: Present: normal inspection, full ROM, other (no C-spine tenderness). Absent: tenderness, lymphadenopathy - Respiratory Respiratory exam: Present: normal lung sounds bilaterally. Absent: respiratory distress, wheezes, rales, rhonchi, stridor, chest wall tenderness, accessory muscle use, decreased breath sounds, prolonged expiratory - Cardiovascular Cardiovascular Exam: Present: regular rate, normal rhythm, normal heart sounds. Absent: systolic murmur, diastolic murmur - GI/Abdominal GI/Abdominal exam: Present: soft, normal bowel sounds. Absent: distended, tenderness, guarding, rebound, rigid, organomegaly, mass, bruit, pulsatile mass , hernia - Extremities Exam Extremities exam: Present: normal inspection, full ROM, normal capillary refill , other (No cce. + 2 pulses in all extremities, no neurovascular compromise). Absent: tenderness, pedal edema, joint swelling, calf tenderness - Back Exam Back exam: Present: normal inspection, full ROM, other (ambulates without any difficulties). Absent: tenderness, CVA tenderness (R), CVA tenderness (L), muscle spasm, paraspinal tenderness, vertebral tenderness, rash noted - Neurological Exam Neurological exam: Present: alert, oriented X3, normal gait, other (no focal neurological deficit). Absent: motor sensory deficit, reflexes normal - Psychiatric Psychiatric exam: Present: normal affect, normal mood - Skin Skin exam: Present: warm, dry, intact, normal color. Absent: rash ED Course Vital Signs 10/03/17 10/03/17 00:58 03:47 Temperature 98.7 F Pulse Rate 103 H 88 Respiratory 18 Rate Blood Pressure 120/78 O2 Sat by Pulse 96 Oximetry Vital Signs 10/03/17 10/03/17 00:58 03:47 Temperature 98.7 F Pulse Rate 103 H 88 Respiratory 18 Rate Blood Pressure 120/78 O2 Sat by Pulse 96 Oximetry - Reevaluation(s) Reevaluation #1: 10/03/17 03:47 Patient is stable no distress. He is currently not having any indigestion. ED Medical Decision Making - Lab Data Lab Results 10/03/17 10/03/17 10/03/17 Range/Units 01:07 01:29 01:29 Urine Color Yellow (Yellow) Urine Turbidity Clear (Clear) Urine pH 5.0 (5.0-7.0) Ur Specific [place] 1.018 (1.003-1.030) Urine Protein <15 mg/dl (Negative) mg/dL Urine Glucose (UA) Neg (Negative) mg/dL Urine Ketones Neg (Negative) mg/dL Urine Blood Neg (Negative) Urine Nitrite Neg (Negative) Urine Bilirubin Neg (Negative) Urine Urobilinogen < 2.0 (<2.0) mg/dL Ur Leukocyte Esterase Neg (Negative) Urine WBC (Auto) 2.0 (0.0-6.0) /HPF Urine RBC (Auto) 3.0 (0.0-6.0) /HPF Urine Mucus Few /HPF Urine Opiates Screen Presumptive negative Urine Methadone Screen Presumptive negative Ur Barbiturates Screen Presumptive negative Ur Phencyclidine Scrn Presumptive negative Ur Amphetamines Screen Presumptive negative U Benzodiazepines Scrn Presumptive negative Urine Cocaine Screen Presumptive negative U Marijuana (THC) Screen Presumptive negative Drugs of Abuse Note Disclamer Plasma/Serum Alcohol 0.03 (0-0.07) % - Medical Decision Making ED course: This is a 42-year-old male who came to the hospital report that he needs clearance for the logic is he was at the [facility] for alcohol rehabilitation and he left yesterday because he relapsed and had some wall call yesterday but he wants some help and he is here to be medically cleared so he can go back to the [facility] to finish his rehabilitation. While he was here he mentioned that he had some indigestion which is not unusual for him which he said he usually takes Tums and it goes away. He said this was this afternoon but he is not having any dizziness at present. Physical exam is normal. Is urine drug screen negative and serum alcohol level is that 0.03. Patient with EtOH abuse and wants to get help. He is medically clear to go back to the [place]. There are no need for any further testing because patient is not having cardiac chest pain he is having in indigestion that he said that one away after he took Tums. Educated patient on alcohol call effects on his liver and brain and he voiced understanding. Patient with episodic dyspepsia which has resolved before he came to the ER. I told him I'll refer him to primary care physician if this becomes a chronic thing since he can be evaluated and treated. He voiced understanding. Patient discharged from emergency room and cleared to go back to the large and stable condition. Vital signs are stable, is afebrile and he is nontoxic in appearance. ED Disposition Disposition: DC-01 TO HOME OR SELFCARE Is pt being admited?: No Does the pt Need Aspirin: No Condition: Stable Instructions: Medical Clearance for Substance Abuse Treatment (ED) Additional Instructions: Patient is medically cleared to go back to [facility] He does not have any distinct dyspepsia at present. For all to primary care in 2-3 days for physical exam. Please refrain from drinking alcohol. Referrals: PRABHU AHMADI MD [Staff Physician] - 2-3 Days [facility] [Outside] - 2-3 Days <DOLORES GEORGE. - Last Filed: 10/03/17 16:33> ED Medical Decision Making - Medical Decision Making I did not see or evaluate the patient. I was available for consultation the entire time the patient was in the ER. Abran George MD
== END 2017-10-03 04:00 | disposition home or self-care (01) ==
LOC: ED 00:39
DX: Z02.89 Encounter for other administrative examinations (principal); I10 Essential (primary) hypertension; F17.200 Nicotine dependence, unspecified, uncomplicated
CPT/HCPCS: 36415; 80307; 81001; 99283; G0480; 80320

== ENCOUNTER 2017-10-06 03:16 | Emergency (ER) | payer MEDICARE ==
[2017-10-06 04:14] LABS: BUN/Creatinine Ratio 8; Blood Urea Nitrogen 7 mg/dL (9-20); Calcium 9.3 mg/dL (8.4-10.2); Hemolysis Index 3
[2017-10-06 04:39] LABS: Hematocrit 43.6 % (35.5-45.6); Hemoglobin 14.5 gm/dl (11.8-15.2); Lymphocytes % (Auto) 24.5 % (13.4-35.0); Mean Corpuscular HGB Conc 33 % (32-34); Mean Corpuscular Hemoglobin 30 pg (28-32); Mean Corpuscular Volume 90 fl (84-94); Mean Platelet Volume 8.2 fl (6-12); Platelet Count 325 K/mm3 (140-440); Red Blood Count 4.85 M/mm3 (3.65-5.03); Red Cell Distribution Width 14.8 % (13.2-15.2)
[2017-10-06 04:40] LABS: Basophils % (Auto) 0.6 % (0.0-1.8); Eosinophils # (Auto) 0.1 K/mm3 (0.0-0.4); Eosinophils % (Auto) 1.4 % (0.0-4.3); Lymphocytes # (Auto) 1.8 K/mm3 (1.2-5.4)
--- NOTE | 2017-10-06 08:24 | Emergency Department Report ---
ED General Adult HPI - General Chief complaint: Medical Clearance Stated complaint: MEDICAL CLEAR. Time Seen by Provider: 10/06/17 06:34 Source: patient Mode of arrival: Ambulatory Limitations: No Limitations - History of Present Illness Initial comments: This is a patient in a [facility] program ([facility] ). He states that he went out and drank alcohol last night instead of returning to the [facility]. He states that he needs to be medically cleared to return to the [facility]. He is not agitated nor violent nor having any sort of aggressive ideation. He is not depressed or suicidal. He appears to essentially wants some rest. He is resting comfortably in the room without any complaints whatsoever. -: Gradual, hour(s) Severity scale (0 -10): 0 Associated Symptoms: denies other symptoms - Related Data Home Medications Medication Instructions Recorded Confirmed Last Taken Hydrochlorothiazide [Hctz] 12.5 mg PO QDAY 09/27/17 09/27/17 Unknown PARoxetine [Paxil] 40 mg PO DAILY 09/27/17 09/27/17 09/27/17 QUEtiapine [SEROquel] 400 mg PO QHS 09/27/17 09/27/17 Unknown Allergies Allergy/AdvReac Type Severity Reaction Status Date / Time No Known Allergies Allergy Verified 10/03/17 00:58 ED Review of Systems ROS: Stated complaint: MEDICAL CLEAR. Other details as noted in HPI Constitutional: denies: chills, fever Eyes: denies: eye pain, eye discharge, vision change ENT: denies: ear pain, throat pain Respiratory: denies: cough, shortness of breath, wheezing Cardiovascular: denies: chest pain, palpitations Endocrine: no symptoms reported Gastrointestinal: denies: abdominal pain, nausea, diarrhea Genitourinary: denies: urgency, dysuria Musculoskeletal: denies: back pain, joint swelling, arthralgia Skin: denies: rash, lesions Neurological: denies: headache, weakness, paresthesias Psychiatric: denies: anxiety, depression Hematological/Lymphatic: denies: easy bleeding, easy bruising ED Past Medical Hx - Past Medical History Hx Hypertension: Yes Hx Seizures: No Hx Psychiatric Treatment: Yes (PANIC ATTACKS/DEPRESSION/ ANXIETY/SCHIZOPHRENIA/ bipolar. ETOH abuse) - Surgical History Additional Surgical History: TONSILLECTOMY - Social History Smoking Status: Never Smoker Substance Use Type: Alcohol - Medications Home Medications: Home Medications Medication Instructions Recorded Confirmed Last Taken Type Hydrochlorothiazide [Hctz] 12.5 mg PO QDAY 09/27/17 09/27/17 Unknown History PARoxetine [Paxil] 40 mg PO DAILY 09/27/17 09/27/17 09/27/17 History QUEtiapine [SEROquel] 400 mg PO QHS 09/27/17 09/27/17 Unknown History ED Physical Exam - General Limitations: No Limitations General appearance: alert, in no apparent distress - Head Head exam: Present: atraumatic, normocephalic - Eye Eye exam: Present: normal appearance, PERRL, EOMI. Absent: scleral icterus - ENT ENT exam: Present: mucous membranes moist - Neck Neck exam: Present: normal inspection - Respiratory Respiratory exam: Present: normal lung sounds bilaterally. Absent: respiratory distress - Cardiovascular Cardiovascular Exam: Present: regular rate, normal rhythm. Absent: systolic murmur, diastolic murmur, rubs, gallop - GI/Abdominal GI/Abdominal exam: Present: soft, normal bowel sounds. Absent: distended, tenderness, guarding, rebound, rigid - Rectal Rectal exam: Present: deferred - Extremities Exam Extremities exam: Present: normal inspection - Back Exam Back exam: Present: normal inspection. Absent: CVA tenderness (R), CVA tenderness (L), muscle spasm, paraspinal tenderness, vertebral tenderness - Neurological Exam Neurological exam: Present: alert, oriented X3, CN II-XII intact. Absent: motor sensory deficit - Psychiatric Psychiatric exam: Present: normal affect, normal mood - Skin Skin exam: Present: warm, dry, intact, normal color. Absent: rash ED Course Vital Signs 10/06/17 10/06/17 03:47 04:59 Temperature 98.6 F 98.2 F Pulse Rate 125 H 107 H Respiratory 16 16 Rate Blood Pressure 109/66 Blood Pressure 116/85 [Right] O2 Sat by Pulse 97 97 Oximetry - Reevaluation(s) Reevaluation #1: The patient is medically clear for return to the outpatient program. 10/06/17 08:23 ED Medical Decision Making - Lab Data Result diagrams: 10/06/17 03:46 10/06/17 03:46 Laboratory Results - last 24 hr 10/06/17 10/06/17 10/06/17 03:46 03:46 03:46 WBC RBC Hgb Hct MCV MCH MCHC RDW Plt Count Lymph % (Auto) [place] % (Auto) Eos % (Auto) Baso % (Auto) Lymph # [place] # Eos # Baso # Seg Neutrophils % Seg Neutrophils # Sodium 140 Potassium 3.4 L Chloride 99.0 Carbon Dioxide 26 Anion Gap 18 BUN 7 L Creatinine 0.9 Estimated GFR > 60 BUN/Creatinine Ratio 8 Glucose 111 H Calcium 9.3 Salicylates < 0.3 L Acetaminophen < 5.0 L Plasma/Serum Alcohol 10/06/17 10/06/17 03:46 03:46 WBC 7.4 RBC 4.85 Hgb 14.5 Hct 43.6 MCV 90 MCH 30 MCHC 33 RDW 14.8 Plt Count 325 Lymph % (Auto) 24.5 [place] % (Auto) 14.0 H Eos % (Auto) 1.4 Baso % (Auto) 0.6 Lymph # 1.8 [place] # 1.0 H Eos # 0.1 Baso # 0.0 Seg Neutrophils % 59.5 Seg Neutrophils # 4.4 Sodium Potassium Chloride Carbon Dioxide Anion Gap BUN Creatinine Estimated GFR BUN/Creatinine Ratio Glucose Calcium Salicylates Acetaminophen Plasma/Serum Alcohol 0.06 Critical care attestation.: If time is entered above; I have spent that time in minutes in the direct care of this critically ill patient, excluding procedure time. ED Disposition Clinical Impression: Alcohol abuse, Medical clearance for psychiatric admission, Hypokalemia Disposition: [id number] TO HOME OR SELFCARE Is pt being admited?: No Does the pt Need Aspirin: No Condition: Stable Instructions: Abuse of Alcohol (ED), Polysubstance Abuse (ED), Hypokalemia (ED) Additional Instructions: You are medically stable to return to the [facility]. Referrals: PRIMARY CARE, [Primary Care Provider] - 3-5 Days Time of Disposition: 08:28
[2017-10-06] MEDS ORDERED: K-DUR PO ONE (08:27)
[2017-10-06 09:17] VITALS: BP 144/64
[2017-10-06 09:40] LABS: Amphetamine Screen,Urine PRESUMPTIVE NEGATIVE; Benzodiazepines Screen,Urine PRESUMPTIVE NEGATIVE; Cannabinoid Screen,Urine PRESUMPTIVE NEGATIVE; Methadone Screen,Urine PRESUMPTIVE NEGATIVE; Opiate Screen,Urine PRESUMPTIVE NEGATIVE
[2017-10-06 09:45] LABS: Bilirubin,Urine NEG (Negative); Blood,Urine NEG (Negative); Color,Urine Yellow (Yellow); Protein,Urine <15 mg/dL mg/dL (Negative)
[2017-10-06 09:52] LABS: Cocaine Screen,Urine PRESUMPTIVE POSITIVE
== END 2017-10-06 09:16 | disposition home or self-care (01) ==
LOC: ED 03:16
DX: F10.20 Alcohol dependence, uncomplicated (principal); I10 Essential (primary) hypertension; F41.0 Panic disorder [episodic paroxysmal anxiety]; F31.9 Bipolar disorder, unspecified; Z90.89 Acquired absence of other organs; E87.6 Hypokalemia
CPT/HCPCS: 36415; 80048; 80307; 81001; 85025; 93005; 93010; 99283; G0480; 80320